=== PATIENT | female | born 1960 | race Caucasian/White ===

== ENCOUNTER 2020-08-10 15:25 | Inpatient (IN) | payer SELFPAY ==
[~2020-08-10] VITALS: Ht 185.4 cm; Wt 111.5 kg
[~2020-08-10 15:25] MED LIST: ALPR0.25 PO; AZIL1TAB3 PO; CEPH125S PO; CITA10TA8 PO; HYDR-2761 PO; METF500T16 PO; MULT-208 PO; SULF-143 PO
[2020-08-10] MEDS ORDERED: IV NORMAL SALINE 1000ML BAG 1,000 ML IV SCH (18:30)
[2020-08-10 18:45] LABS: BASO % 0 % (0-3); EOS # 0.1 x10^3/uL (0.0-0.7); EOS % 1 % (0-3); HEMOGLOBIN 12.2 g/dL (12.0-15.5); LYMPH # 1.4 x10^3/uL (1.0-4.8); LYMPH % 10 % (24-48); MEAN CORPUSCULAR HEMOGLOBIN 31 pg (25-35); MEAN CORPUSCULAR HGB CONC 34 g/dL (31-37); MEAN CORPUSCULAR VOLUME 91 fL (79-100); MONO # 0.8 x10^3/uL (0.0-1.1); MONO % 6 % (0-9); NEUT # 11.8 x10^3/uL (1.8-7.7); NEUT % 83 % (31-73); PLATELET COUNT 296 x10^3/uL (140-400); RED BLOOD COUNT 3.96 x10^6/uL (3.50-5.40); RED CELL DISTRIBUTION WIDTH 14.2 % (11.5-14.5); WHITE BLOOD COUNT 14.1 x10^3/uL (4.0-11.0)
[2020-08-10] MEDS ORDERED: HYDROmorphone 2 MG/ML VIAL IVP ONE (18:45)
[2020-08-10] MEDS ORDERED: PIPERACILLIN/TAZOBACTAM 4.5 GM in IV NORMAL SALINE 100ML 100 ML IV ONE (18:45)
[2020-08-10 18:54] LABS: CALCIUM 8.9 mg/dL (8.5-10.1); CREATININE 2.1 mg/dL (0.6-1.0); GFR 24.1; POTASSIUM 3.9 mmol/L (3.5-5.1); PROTHROMBIN TIME PATIENT 15.3 SEC (11.7-14.0)
[2020-08-10] MEDS ORDERED: VANCOMYCIN 2 GM in IV NORMAL SALINE 500ML BAG 500 ML IV ONE (19:00)
[2020-08-10 19:01] LABS: ALBUMIN 3.7 g/dL (3.4-5.0); TOTAL BILIRUBIN 0.3 mg/dL (0.2-1.0); TOTAL PROTEIN 7.3 g/dL (6.4-8.2)
[2020-08-10] MEDS ORDERED: IV NORMAL SALINE 1000ML BAG 1,000 ML IV ONE ×2 (19:15)
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
[2020-08-10] MEDS ORDERED: ACETAMINOPHEN 325 MG TABLET. PO PRN (20:00)
[2020-08-10] MEDS: MORPHINE SULFATE 4 MG/ML VIAL. IV PRN (22:01)
[2020-08-10 22:20] VITALS: BP 120/41
[2020-08-11] MEDS: MORPHINE SULFATE 4 MG/ML VIAL. IV PRN ×7 (01:08→22:16)
[2020-08-11 03:09] VITALS: BP 108/60
[2020-08-11 07:00] VITALS: BP 103/61
[2020-08-11] MEDS ORDERED: CARI350T14 PO (07:47)
[2020-08-11] MEDS ORDERED: VITA1TAB31 PO (07:47)
[2020-08-11] MEDS ORDERED: LOSA100T14 PO (07:47)
[2020-08-11] MEDS ORDERED: PYRI50CA PO (07:47)
[2020-08-11] MEDS ORDERED: CITA40TA12 PO (07:47)
[2020-08-11] MEDS ORDERED: METF10007 PO (07:47)
[2020-08-11 10:02] LABS: ALBUMIN 2.8 g/dL (3.4-5.0); ALBUMIN/GLOBULIN RATIO 0.9 (1.0-1.7); CALCIUM 8.4 mg/dL (8.5-10.1); CREATININE 1.7 mg/dL (0.6-1.0); GFR 30.8; POTASSIUM 3.8 mmol/L (3.5-5.1); TOTAL BILIRUBIN 0.3 mg/dL (0.2-1.0); TOTAL PROTEIN 5.9 g/dL (6.4-8.2)
[2020-08-11 10:49] VITALS: BP 106/55
--- NOTE | 2020-08-11 11:37 | PDOC2 ---
CONSULT Date of Service Date of Service DATE: 08/11/20 TIME: 11:28 Reason for Consult Reason for Consult: PAD left fourth toe gangrene Referring Physician Referring Physician: Dr. Gonzalez Identification/Chief Complaint Chief Complaint Left fourth toe discoloration Source Source: Chart review, Patient History of Present Illness Reason for Visit: Patient is a 59-year-old woman with a history of diabetes mellitus type 2 and tobacco abuse Daily cigarette smoker who presented to the emergency department with about 2 days of left fourth toe discoloration. She apparently called her primary care office and was sent to the emergency department. She denies any fever, chills, rigors. She states that she noticed about 2 days ago that her left fourth toe is becoming discolored became worse and she presented to the emergency department. She denies any history of claudication symptoms that she has no ischemic rest pain. She has no history of previous lower extremity arterial intervention. She states that she has been trying to cut back on cigarettes but has been smoking daily for many years. She is a type II diabetic. Past Medical History Cardiovascular: HTN Endocrine: Diabetes Social History 1 pack per day ALCOHOL: social Drugs: None Current Problem List Problem List Problems Medical Problems: (1) PAMELA (acute kidney injury) Status: Acute (2) Blue toe syndrome of left lower extremity Status: Acute (3) Cellulitis of foot, left Status: Acute (4) PAD (peripheral artery disease) Status: Acute Current Medications Current Medications Current Medications Sodium Chloride 1,000 ml @ 100 mls/hr Q10H IV Last administered on 08/10/20at 19:06; Start 08/10/20 at 18:30; Stop 08/11/20 at 04:29; Status DC Piperacillin Sod/ Tazobactam Sod 4.5 gm/Sodium Chloride 100 ml @ 200 mls/hr 1X ONCE IV Last administered on 08/10/20at 23:04; Start 08/10/20 at 18:45; Stop 08/10/20 at 19:14; Status DC Vancomycin HCl 2 gm/Sodium Chloride 500 ml @ 250 mls/hr 1X ONCE IV Last administered on 08/10/20at 19:07; Start 08/10/20 at 19:00; Stop 08/10/20 at 20:59; Status DC Hydromorphone HCl (Dilaudid) 0.5 mg 1X ONCE IVP Last administered on 08/10/20at 19:04; Start 08/10/20 at 18:45; Stop 08/10/20 at 18:46; Status DC Sodium Chloride 1,000 ml @ 1,000 mls/hr 1X ONCE IV ; Start 08/10/20 at 19:15; Stop 08/10/20 at 20:14; Status DC Sodium Chloride 1,000 ml @ 1,000 mls/hr 1X ONCE IV ; Start 08/10/20 at 19:15; Stop 08/10/20 at 20:14; Status DC Acetaminophen (Tylenol) 650 mg PRN Q4HRS PRN PO FEVER > 100.3'F; Start 08/10/20 at 20:00; Stop 08/11/20 at 19:59 Morphine Sulfate (Morphine Sulfate) 4 mg PRN Q2HR PRN IV SEVERE PAIN 7-10 Last administered on 08/11/20at 08:01; Start 08/10/20 at 22:00 Morphine Sulfate (Morphine Sulfate) 2 mg PRN Q2HR PRN IVP MODERATE PAIN 4-6; Start 08/10/20 at 22:00 Active Scripts Active Reported Vitamin B-6 (Pyridoxine Hcl) 50 Mg Capsule 1 Cap PO DAILY 30 Days D3 + K2 Dots 1,000 Units Tab (Vitamin D3/Vitamin K2) 1 Each Tab.rapdis 1 Tab PO DAILY 30 Days Losartan Potassium 100 Mg Tablet 1 Tab PO DAILY Carisoprodol 350 Mg Tablet 1 Tab PO TID PRN Celexa (Citalopram Hydrobromide) 40 Mg Tablet 1 Tab PO DAILY Metformin Hcl 1,000 Mg Tablet 1,000 Mg PO [id number] Multi-Day Vitamins (Multivitamin) 1 Each Tablet 1 Each PO Allergies Allergies: Coded Allergies: No Known Drug Allergies (Unverified , 07/08/15) Physical Exam General: Alert, Oriented X3, No acute distress HEENT: Atraumatic, PERRLA Lungs: Clear to auscultation Heart: Regular rate, Normal S1, Normal S2, No murmurs Abdomen: Normal bowel sounds, Soft, No masses Extremities: No clubbing, Other (Left fourth toe purplish discoloration bilateral femoral pulses are 2+ bilateral ankle pulses are absent but signals are present) Skin: No rashes Neuro: Normal gait, Normal speech, Normal tone, Sensation intact, Other (She is easily able to wiggle the toes dorsiflex and plantarflex the feet and reports equal and intact sensation to both feet) Psych/Mental Status: Mental status NL MUSCULOSKELETAL: No joint tenderness Vitals VITALS Vital Signs Date Time Temp Pulse Resp B/P (MAP) Pulse Ox O2 Delivery O2 Flow Rate FiO2 08/11/20 10:49 97.5 63 18 106/55 (72) 95 Room Air 97.5 Labs Labs Laboratory Tests Test 08/10/20 18:37 08/10/20 23:06 08/11/20 07:16 08/11/20 09:11 White Blood Count 14.1 x10^3/uL (4.0-11.0) Red Blood Count 3.96 x10^6/uL (3.50-5.40) Hemoglobin 12.2 g/dL (12.0-15.5) Hematocrit 36.0 % (36.0-47.0) Mean Corpuscular Volume 91 fL (79-100) Mean Corpuscular Hemoglobin 31 pg (25-35) Mean Corpuscular Hemoglobin Concent 34 g/dL (31-37) Red Cell Distribution Width 14.2 % (11.5-14.5) Platelet Count 296 x10^3/uL (140-400) Neutrophils (%) (Auto) 83 % (31-73) Lymphocytes (%) (Auto) 10 % (24-48) Monocytes (%) (Auto) 6 % (0-9) Eosinophils (%) (Auto) 1 % (0-3) Basophils (%) (Auto) 0 % (0-3) Neutrophils # (Auto) 11.8 x10^3/uL (1.8-7.7) Lymphocytes # (Auto) 1.4 x10^3/uL (1.0-4.8) Monocytes # (Auto) 0.8 x10^3/uL (0.0-1.1) Eosinophils # (Auto) 0.1 x10^3/uL (0.0-0.7) Basophils # (Auto) 0.0 x10^3/uL (0.0-0.2) Prothrombin Time 15.3 SEC (11.7-14.0) Prothromb Time International Ratio 1.3 (0.8-1.1) Activated Partial Thromboplast Time 33 SEC (24-38) Sodium Level 133 mmol/L (136-145) 136 mmol/L (136-145) Potassium Level 3.9 mmol/L (3.5-5.1) 3.8 mmol/L (3.5-5.1) Chloride Level 98 mmol/L (98-107) 104 mmol/L (98-107) Carbon Dioxide Level 20 mmol/L (21-32) 20 mmol/L (21-32) Anion Gap 15 (6-14) 12 (6-14) Blood Urea Nitrogen 63 mg/dL (7-20) 61 mg/dL (7-20) Creatinine 2.1 mg/dL (0.6-1.0) 1.7 mg/dL (0.6-1.0) Estimated GFR (Cockcroft-Gault) 24.1 30.8 BUN/Creatinine Ratio 30 (6-20) 36 (6-20) Glucose Level 204 mg/dL (70-99) 156 mg/dL (70-99) Calcium Level 8.9 mg/dL (8.5-10.1) 8.4 mg/dL (8.5-10.1) Total Bilirubin 0.3 mg/dL (0.2-1.0) 0.3 mg/dL (0.2-1.0) Aspartate Amino Transf (AST/SGOT) 10 U/L (15-37) 9 U/L (15-37) Alanine Aminotransferase (ALT/SGPT) 19 U/L (14-59) 15 U/L (14-59) Alkaline Phosphatase 80 U/L (46-116) 67 U/L (46-116) Total Protein 7.3 g/dL (6.4-8.2) 5.9 g/dL (6.4-8.2) Albumin 3.7 g/dL (3.4-5.0) 2.8 g/dL (3.4-5.0) Albumin/Globulin Ratio 1.0 (1.0-1.7) 0.9 (1.0-1.7) Glucose (Fingerstick) 283 mg/dL (70-99) 173 mg/dL (70-99) Test 08/11/20 11:10 Glucose (Fingerstick) 146 mg/dL (70-99) Laboratory Tests Test 08/10/20 18:37 08/10/20 23:06 08/11/20 07:16 08/11/20 09:11 White Blood Count 14.1 x10^3/uL (4.0-11.0) Red Blood Count 3.96 x10^6/uL (3.50-5.40) Hemoglobin 12.2 g/dL (12.0-15.5) Hematocrit 36.0 % (36.0-47.0) Mean Corpuscular Volume 91 fL (79-100) Mean Corpuscular Hemoglobin 31 pg (25-35) Mean Corpuscular Hemoglobin Concent 34 g/dL (31-37) Red Cell Distribution Width 14.2 % (11.5-14.5) Platelet Count 296 x10^3/uL (140-400) Neutrophils (%) (Auto) 83 % (31-73) Lymphocytes (%) (Auto) 10 % (24-48) Monocytes (%) (Auto) 6 % (0-9) Eosinophils (%) (Auto) 1 % (0-3) Basophils (%) (Auto) 0 % (0-3) Neutrophils # (Auto) 11.8 x10^3/uL (1.8-7.7) Lymphocytes # (Auto) 1.4 x10^3/uL (1.0-4.8) Monocytes # (Auto) 0.8 x10^3/uL (0.0-1.1) Eosinophils # (Auto) 0.1 x10^3/uL (0.0-0.7) Basophils # (Auto) 0.0 x10^3/uL (0.0-0.2) Prothrombin Time 15.3 SEC (11.7-14.0) Prothromb Time International Ratio 1.3 (0.8-1.1) Activated Partial Thromboplast Time 33 SEC (24-38) Sodium Level 133 mmol/L (136-145) 136 mmol/L (136-145) Potassium Level 3.9 mmol/L (3.5-5.1) 3.8 mmol/L (3.5-5.1) Chloride Level 98 mmol/L (98-107) 104 mmol/L (98-107) Carbon Dioxide Level 20 mmol/L (21-32) 20 mmol/L (21-32) Anion Gap 15 (6-14) 12 (6-14) Blood Urea Nitrogen 63 mg/dL (7-20) 61 mg/dL (7-20) Creatinine 2.1 mg/dL (0.6-1.0) 1.7 mg/dL (0.6-1.0) Estimated GFR (Cockcroft-Gault) 24.1 30.8 BUN/Creatinine Ratio 30 (6-20) 36 (6-20) Glucose Level 204 mg/dL (70-99) 156 mg/dL (70-99) Calcium Level 8.9 mg/dL (8.5-10.1) 8.4 mg/dL (8.5-10.1) Total Bilirubin 0.3 mg/dL (0.2-1.0) 0.3 mg/dL (0.2-1.0) Aspartate Amino Transf (AST/SGOT) 10 U/L (15-37) 9 U/L (15-37) Alanine Aminotransferase (ALT/SGPT) 19 U/L (14-59) 15 U/L (14-59) Alkaline Phosphatase 80 U/L (46-116) 67 U/L (46-116) Total Protein 7.3 g/dL (6.4-8.2) 5.9 g/dL (6.4-8.2) Albumin 3.7 g/dL (3.4-5.0) 2.8 g/dL (3.4-5.0) Albumin/Globulin Ratio 1.0 (1.0-1.7) 0.9 (1.0-1.7) Glucose (Fingerstick) 283 mg/dL (70-99) 173 mg/dL (70-99) Test 08/11/20 11:10 Glucose (Fingerstick) 146 mg/dL (70-99) Assessment/Plan Assessment/Plan 59-year-old female with multiple risk factors for PAD including diabetes mellitus type 2 tobacco abuse who has left fourth toe discoloration likely early gangrene without evidence of systemic infection. She has excellent femoral pulses, ankle pulses absent but signals present consistent with popliteal tibial occlusive disease which would be consistent with her history of diabetes and smoking. She was admitted with elevated creatinine 2.1 improved to 1.7 today with IV fluid hydration. Continue with aggressive IV fluid hydration hopefully we can improve her creatinine to normal over the next day or 2. I ordered a arterial duplex of both legs. She will likely need diagnostic angiography and intervention versus bypass for limb salvage with subsequent to left fourth toe amputation. I discussed with her that normal flow is necessary for wound healing and that we cannot simply amputate the toe without good blood flow to the foot otherwise she will have a nonhealing surgical wound and result in limb loss/major amputation. Given her elevated creatinine would like to see this improve prior to timmy ography. She has a normal motor and sensation her only symptoms are the left fourth toe so this is most consistent with the presentation of chronic PAD and not any acute limb threatening ischemia. While her toe does appear to have early gangrene she does not have any signs of sepsis or systemic infection and the rest of the foot looks good so she does not need urgent amputation for source control. Agree with continuing antibiotics, aggressive IV fluid hydration, recheck labs in the morning, plan for angiography and likely intervention this week followed by toe amputation versus bypass in 2 amputation depending on angiographic find RUIZ Andrade MD Aug 11, 2020 11:37
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
[2020-08-11] MEDS: VANCOMYCIN PER PHARMACY MC PRN ×3 (14:16→14:23)
--- NOTE | 2020-08-11 14:20 | NUR ---
Pharmacy Vancomycin Dosing Note S:Consulted to monitor and dose vancomycin started 08/11/20. O:ELIOT BANEGAS is a 59 year old F with GANGRENOUS TOES . Height: 6 feet, 1 inches Weight: 111.5 kg [place] Body Weight: 75.40 Adjusted Body Weight: 89.84 Dosing Weight: Other Antibiotics: ZOSYN LABS: Last BUN: 61 Last Creatinine: 1.7 Creatinine Clearance: 50 mL/min Last WBC: 14.1 Last Procalcitonin: Tmax (past 24 hours): Microbiology: I/O: 360/- Drug Levels: Last level: on at Last dose given at Vancomycin Dosing: Loading Dose: 2000 mg x1 Dosing Weight: Target Trough: 15-20 A: Based on: HT, WT AND RENAL FUNCTION P: 1. Begin Vancomycin 1750 mg IV q 24 hours after 2000mg loading dose. 2. Follow up Trough level on 08/12/20 at 1830 3. Pharmacy will continue to monitor, follow and adjust therapy as needed. ILDEFONSO CAI, [facility], 08/11/20 [id number]
[2020-08-11] MEDS: PYRIDOXINE 50 MG TABLET. PO SCH (14:30)
[2020-08-11] MEDS: LOSARTAN POTASSIUM 50 MG TABLET. PO SCH (14:30)
[2020-08-11] MEDS: CHOLECALCIFEROL (VITAMIN D3) 1,000 UNIT TABLET PO SCH (14:30)
[2020-08-11] MEDS: PIPERACILLIN/TAZOBACTAM 3.375 GM in IV NORMAL SALINE 50ML 50 ML IV SCH ×3 (14:30→23:56)
[2020-08-11] MEDS: CITALOPRAM 20 MG TABLET. PO SCH (14:31)
[2020-08-11 14:37] VITALS: BP 105/42
[2020-08-11] MEDS: VANCOMYCIN 1.75 GM in IV NORMAL SALINE 500ML BAG 500 ML IV SCH ×2 (18:50→19:00)
[2020-08-11 19:12] VITALS: BP 109/57
[2020-08-11] MEDS: LACTOBACILLUS RHAMNOSUS GG 1 CAPSULE. PO SCH (21:01)
[2020-08-11 23:11] VITALS: BP 125/57
[2020-08-12] MEDS: MORPHINE SULFATE 4 MG/ML VIAL. IV PRN ×9 (00:58→21:34)
[2020-08-12 03:06] VITALS: BP 114/45
--- NOTE | 2020-08-12 05:17 | RAD ---
Bilateral lower extremity arterial Doppler dated 08/11/2020. No comparison available. CLINICAL INDICATION: Peripheral artery disease. Pain. FINDINGS: Grayscale, color-flow and spectral waveform analysis performed. There is mild diffuse atherosclerotic plaquing. Triphasic flow of the right common femoral artery and proximal superficial femoral artery with monophasic flow in the mid and distal superficial femoral artery on the right. There is also mon ophasic flow throughout the calf arteries on the right. Low velocity flow noted posterior tibial raeann ry. The peroneal artery is not visualized. There is mild elevated velocity the profundus femoris arlyn uring 156 cm/S. On the left, there is monophasic flow throughout areas of relative low velocity in the posterior tibi al artery peroneal artery and dorsalis pedis. There is mild elevation of velocity of the profundus fe rubi measuring 157 cm/S. IMPRESSION: 1. Monophasic flow bilaterally which could be related to diffuse disease or inflow disease. If indica avelina, CTA would better evaluate. 2. Velocity elevation of the bilateral profundus femoris suggesting a moderate grade narrowing. 3. There is also relative velocity elevation of the right anterior tibial artery suggesting moderate to mild to moderate narrowing. The right peroneal artery is not visualized and may be chronically occ luded Electronically signed by: Leon Melendez MD (08/12/2020 5:15 AM) [facility]
[2020-08-12] MEDS: PIPERACILLIN/TAZOBACTAM 3.375 GM in IV NORMAL SALINE 50ML 50 ML IV SCH ×4 (05:52→23:58)
--- NOTE | 2020-08-12 06:30 | NUR ---
Vanco that was due 08/11/2020 was not administered due to stating it was discontinued and when refreshed, it was removed off of the MAR. Going through OCT this AM, noticed that it was on and stated that I administered, however I didn't due to reason above. Will ensure next scheduled is administered. MPRN
[2020-08-12 07:04] VITALS: BP 134/52
[2020-08-12] MEDS: CHOLECALCIFEROL (VITAMIN D3) 1,000 UNIT TABLET PO SCH (08:00)
[2020-08-12] MEDS: LACTOBACILLUS RHAMNOSUS GG 1 CAPSULE. PO SCH ×2 (08:00→21:34)
[2020-08-12] MEDS: PYRIDOXINE 50 MG TABLET. PO SCH (08:00)
[2020-08-12] MEDS: CITALOPRAM 20 MG TABLET. PO SCH (08:00)
[2020-08-12] MEDS: LOSARTAN POTASSIUM 50 MG TABLET. PO SCH (08:01)
[2020-08-12 10:34] VITALS: BP 116/51
[2020-08-12] MEDS ORDERED: IV 1/2 NORMAL SALINE 1,000 ML IV ONE (11:00)
--- NOTE | 2020-08-12 13:17 | PN ---
DATE: 08/12/2020 LOCATION: She is in room 428. SUBJECTIVE: This 59-year-old white female remains hospitalized for gangrene of her left fourth toe and no palpable pulses in her feet, although foot remains warm. She also has what appears to be some cellulitis of the distal forefoot area in addition. She denies any significant complaints this morning. OBJECTIVE: VITAL SIGNS: Stable. She is afebrile. Sugars are somewhat elevated and sliding scale ordered. Insulin was ordered yesterday, but I do not see where it is happening yet. CHEST: Clear. HEART: Regular. ABDOMEN: Benign. EXTREMITIES: Foot appears similar to yesterday with again still no palpable pulses. IMPRESSION: 1. Left fourth toe gangrene with peripheral arterial disease. 2. Acute kidney injury. 3. Diabetes. 4. Cellulitis, left foot. PLAN: Ongoing IV antibiotics. We will plan on continuing hydration, rechecking renal function in the morning and hopefully able to do an arteriogram of the leg. Her metformin is on hold and sliding scale insulin has been ordered to cover sugars in the meantime. OLGA SERRA MD DR: DEIRDRE/ct JOB#: [id number] / [id number]
[2020-08-12 14:29] VITALS: BP 111/53
--- NOTE | 2020-08-12 16:18 | PDOC ---
PROGRESS NOTES Date of Service DATE: 08/12/20 TIME: 16:16 Subjective Subjective No new c/o arterial duplex shows evidence of significant tibial occlusive disease on the left she will need angiogram / revascularization prior to left 4th toe amputation No Cr was checked this morning but if close to normal will try to do angiogram tomorrow If not potentially later in the week Objective Objective Vital Signs Date Time Temp Pulse Resp B/P (MAP) Pulse Ox O2 Delivery O2 Flow Rate FiO2 08/12/20 15:24 16 Room Air 08/12/20 14:29 97.9 66 111/53 (72) 93 97.9 Intake and Output 08/12/20 07:00 Intake Total 1400 ml Output Total 1700 ml Balance -300 ml Intake Oral 1400 ml Output Urine Total 1700 ml # Voids 1 Assessment Assessment Problems Medical Problems: (1) PAMELA (acute kidney injury) Status: Acute (2) Blue toe syndrome of left lower extremity Status: Acute (3) Cellulitis of foot, left Status: Acute (4) PAD (peripheral artery disease) Status: Acute Comment Review of Relevant I have reviewed the following items scott (where applicable) has been applied. Labs Laboratory Tests Test 08/10/20 18:37 08/10/20 23:06 08/11/20 07:16 08/11/20 09:11 White Blood Count 14.1 x10^3/uL (4.0-11.0) Red Blood Count 3.96 x10^6/uL (3.50-5.40) Hemoglobin 12.2 g/dL (12.0-15.5) Hematocrit 36.0 % (36.0-47.0) Mean Corpuscular Volume 91 fL (79-100) Mean Corpuscular Hemoglobin 31 pg (25-35) Mean Corpuscular Hemoglobin Concent 34 g/dL (31-37) Red Cell Distribution Width 14.2 % (11.5-14.5) Platelet Count 296 x10^3/uL (140-400) Neutrophils (%) (Auto) 83 % (31-73) Lymphocytes (%) (Auto) 10 % (24-48) Monocytes (%) (Auto) 6 % (0-9) Eosinophils (%) (Auto) 1 % (0-3) Basophils (%) (Auto) 0 % (0-3) Neutrophils # (Auto) 11.8 x10^3/uL (1.8-7.7) Lymphocytes # (Auto) 1.4 x10^3/uL (1.0-4.8) Monocytes # (Auto) 0.8 x10^3/uL (0.0-1.1) Eosinophils # (Auto) 0.1 x10^3/uL (0.0-0.7) Basophils # (Auto) 0.0 x10^3/uL (0.0-0.2) Prothrombin Time 15.3 SEC (11.7-14.0) Prothromb Time International Ratio 1.3 (0.8-1.1) Activated Partial Thromboplast Time 33 SEC (24-38) Sodium Level 133 mmol/L (136-145) 136 mmol/L (136-145) Potassium Level 3.9 mmol/L (3.5-5.1) 3.8 mmol/L (3.5-5.1) Chloride Level 98 mmol/L (98-107) 104 mmol/L (98-107) Carbon Dioxide Level 20 mmol/L (21-32) 20 mmol/L (21-32) Anion Gap 15 (6-14) 12 (6-14) Blood Urea Nitrogen 63 mg/dL (7-20) 61 mg/dL (7-20) Creatinine 2.1 mg/dL (0.6-1.0) 1.7 mg/dL (0.6-1.0) Estimated GFR (Cockcroft-Gault) 24.1 30.8 BUN/Creatinine Ratio 30 (6-20) 36 (6-20) Glucose Level 204 mg/dL (70-99) 156 mg/dL (70-99) Calcium Level 8.9 mg/dL (8.5-10.1) 8.4 mg/dL (8.5-10.1) Total Bilirubin 0.3 mg/dL (0.2-1.0) 0.3 mg/dL (0.2-1.0) Aspartate Amino Transf (AST/SGOT) 10 U/L (15-37) 9 U/L (15-37) Alanine Aminotransferase (ALT/SGPT) 19 U/L (14-59) 15 U/L (14-59) Alkaline Phosphatase 80 U/L (46-116) 67 U/L (46-116) Total Protein 7.3 g/dL (6.4-8.2) 5.9 g/dL (6.4-8.2) Albumin 3.7 g/dL (3.4-5.0) 2.8 g/dL (3.4-5.0) Albumin/Globulin Ratio 1.0 (1.0-1.7) 0.9 (1.0-1.7) Glucose (Fingerstick) 283 mg/dL (70-99) 173 mg/dL (70-99) Test 08/11/20 11:10 08/11/20 16:06 08/11/20 20:03 08/12/20 07:13 Glucose (Fingerstick) 146 mg/dL (70-99) 240 mg/dL (70-99) 245 mg/dL (70-99) 180 mg/dL (70-99) Test 08/12/20 11:09 Glucose (Fingerstick) 237 mg/dL (70-99) Laboratory Tests Test 08/11/20 20:03 08/12/20 07:13 08/12/20 11:09 Glucose (Fingerstick) 245 mg/dL (70-99) 180 mg/dL (70-99) 237 mg/dL (70-99) Medications Current Medications Sodium Chloride 1,000 ml @ 100 mls/hr Q10H IV Last administered on 08/10/20at 19:06; Start 08/10/20 at 18:30; Stop 08/11/20 at 04:29; Status DC Piperacillin Sod/ Tazobactam Sod 4.5 gm/Sodium Chloride 100 ml @ 200 mls/hr 1X ONCE IV Last administered on 08/10/20at 23:04; Start 08/10/20 at 18:45; Stop 08/10/20 at 19:14; Status DC Vancomycin HCl 2 gm/Sodium Chloride 500 ml @ 250 mls/hr 1X ONCE IV Last administered on 08/10/20at 19:07; Start 08/10/20 at 19:00; Stop 08/10/20 at 20:59; Status DC Hydromorphone HCl (Dilaudid) 0.5 mg 1X ONCE IVP Last administered on 08/10/20at 19:04; Start 08/10/20 at 18:45; Stop 08/10/20 at 18:46; Status DC Sodium Chloride 1,000 ml @ 1,000 mls/hr 1X ONCE IV ; Start 08/10/20 at 19:15; Stop 08/10/20 at 20:14; Status DC Sodium Chloride 1,000 ml @ 1,000 mls/hr 1X ONCE IV ; Start 08/10/20 at 19:15; Stop 08/10/20 at 20:14; Status DC Acetaminophen (Tylenol) 650 mg PRN Q4HRS PRN PO FEVER > 100.3'F; Start 08/10/20 at 20:00; Stop 08/11/20 at 19:59; Status DC Morphine Sulfate (Morphine Sulfate) 4 mg PRN Q2HR PRN IV SEVERE PAIN 7-10 Last administered on 08/12/20at 14:49; Start 08/10/20 at 22:00 Morphine Sulfate (Morphine Sulfate) 2 mg PRN Q2HR PRN IVP MODERATE PAIN 4-6; Start 08/10/20 at 22:00 Citalopram Hydrobromide (CeleXA) 40 mg DAILY PO Last administered on 08/12/20at 08:00; Start 08/11/20 at 14:00 Losartan Potassium (Cozaar) 100 mg DAILY PO Last administered on 08/12/20at 08:01; Start 08/11/20 at 14:00 Pyridoxine HCl (Vitamin B-6) 50 mg DAILY PO Last administered on 08/12/20at 08:00; Start 08/11/20 at 14:00 Vitamin D (Vitamin D3) 1,000 unit DAILY PO Last administered on 08/12/20at 08:00; Start 08/11/20 at 14:00 Piperacillin Sod/ Tazobactam Sod 3.375 gm/Sodium Chloride 50 ml @ 100 mls/hr Q6HRS IV Last administered on 08/12/20at 12:00; Start 08/11/20 at 14:00 Vancomycin HCl (Vanco Per Pharmacy) 1 each PRN DAILY PRN MC SEE COMMENTS Last administered on 08/11/20at 14:23; Start 08/11/20 at 13:00 Vancomycin HCl 1.75 gm/Sodium Chloride 500 ml @ 250 mls/hr Q24H IV ; Start 08/11/20 at 19:00 Vancomycin HCl (Vancomycin Trough Level) 1 each 1X ONCE MC ; Start 08/12/20 at 18:30; Stop 08/12/20 at 18:31 Lactobacillus Rhamnosus (Culturelle) 1 cap BID PO Last administered on 08/12/20at 08:00; Start 08/11/20 at 21:00 Sodium Chloride 1,000 ml @ 125 mls/hr 1X ONCE IV Last administered on 08/12/20at 10:41; Start 08/12/20 at 11:00; Stop 08/12/20 at 18:59 Active Scripts Active Reported Vitamin B-6 (Pyridoxine Hcl) 50 Mg Capsule 1 Cap PO DAILY 30 Days D3 + K2 Dots 1,000 Units Tab (Vitamin D3/Vitamin K2) 1 Each Tab.rapdis 1 Tab PO DAILY 30 Days Losartan Potassium 100 Mg Tablet 1 Tab PO DAILY Carisoprodol 350 Mg Tablet 1 Tab PO TID PRN Celexa (Citalopram Hydrobromide) 40 Mg Tablet 1 Tab PO DAILY Metformin Hcl 1,000 Mg Tablet 1,000 Mg PO [id number] Multi-Day Vitamins (Multivitamin) 1 Each Tablet 1 Each PO Vitals/I & O Vital Sign - Last 24 Hours 08/11/20 08/11/20 08/11/20 08/11/20 16:20 19:12 19:30 19:40 Temp 97.8 97.8 Pulse 69 Resp 16 16 B/P (MAP) 109/57 (74) Pulse Ox 93 O2 Delivery Room Air Room Air Room Air Room Air 08/11/20 08/11/20 08/11/20 08/11/20 20:10 22:16 22:55 23:11 Temp 98.6 98.6 Pulse 72 Resp 18 B/P (MAP) 125/57 (79) Pulse Ox 90 O2 Delivery Room Air Room Air Room Air Room Air 08/12/20 08/12/20 08/12/20 08/12/20 00:58 03:06 05:56 06:35 Temp 98.2 98.2 Pulse 65 Resp 23 B/P (MAP) 114/45 (68) Pulse Ox 90 O2 Delivery Room Air Room Air Room Air Room Air 08/12/20 08/12/20 08/12/20 08/12/20 07:04 08:00 08:01 08:07 Temp 98.1 98.1 Pulse 64 64 Resp 18 16 B/P (MAP) 134/52 (79) 134/52 Pulse Ox 92 O2 Delivery Room Air Room Air Room Air 08/12/20 08/12/20 08/12/20 08/12/20 08:58 10:15 10:34 10:45 Temp 98.0 98.0 Pulse 60 Resp 16 16 18 16 B/P (MAP) 116/51 (72) Pulse Ox 93 O2 Delivery Room Air Room Air Room Air Room Air 08/12/20 08/12/20 08/12/20 08/12/20 12:46 13:57 14:29 14:49 Temp 97.9 97.9 Pulse 66 Resp 16 18 16 B/P (MAP) 111/53 (72) Pulse Ox 93 O2 Delivery Room Air Room Air Room Air Room Air 08/12/20 15:24 Resp 16 O2 Delivery Room Air Intake and Output 08/11/20 08/11/20 08/12/20 15:00 23:00 07:00 Intake Total 700 ml 700 ml Output Total 1000 ml 700 ml Balance -300 ml 0 ml Justifications for Admission Other Justification MASON,RUIZ Resendiz MD Aug 12, 2020 16:18
[2020-08-12] MEDS: VANCOMYCIN 1.75 GM in IV NORMAL SALINE 500ML BAG 500 ML IV SCH (19:00)
[2020-08-12 19:28] LABS: VANC TR 7.1 mcg/mL (10.0-20.0)
[2020-08-12] MEDS: VANCOMYCIN PER PHARMACY MC PRN ×2 (19:33→20:04)
[2020-08-12 19:37] VITALS: BP 93/51
--- NOTE | 2020-08-12 20:10 | NUR ---
Pharmacy Vancomycin Dosing Note S: Consulted to monitor and dose vancomycin started 08/11/20. O: ELIOT BANEAGS is a 59 year old F with , GANGRENOUS TOES . Other Antibiotics: ZOSYN LABS: Last BUN: 61 Last Creatinine: 1.7 Creatinine Clearance: 50 mL/min Last WBC: 14.1 Last Procalcitonin: Tmax (past 24 hours): Microbiology: I/O: 360/- Drug Levels: Last Trough level: 7.1 on 08/12/20 at 1845 Last dose given at Vancomycin Dosing: Dosing Weight: Actual Target Trough: 15-20 A: Based on: low trough P: 1. Change Vancomycin 1250 mg IV q12h 2. Follow up Trough level on 08/14/20 at 0730 3. Pharmacy will continue to monitor, follow and adjust therapy as needed. ILDEFONSO CAI, [facility], 08/12/202009
[2020-08-12] MEDS: VANCOMYCIN 1.25 GM in IV NORMAL SALINE 250ML 250 ML IV SCH (20:11)
[2020-08-12 23:02] VITALS: BP 111/46
[2020-08-13] MEDS: MORPHINE SULFATE 4 MG/ML VIAL. IV PRN ×5 (01:12→20:30)
[2020-08-13] MEDS: PIPERACILLIN/TAZOBACTAM 3.375 GM in IV NORMAL SALINE 50ML 50 ML IV SCH ×3 (05:41→17:37)
[2020-08-13 06:23] LABS: CALCIUM 8.2 mg/dL (8.5-10.1); CREATININE 1.4 mg/dL (0.6-1.0); GFR 38.5; POTASSIUM 4.3 mmol/L (3.5-5.1)
--- NOTE | 2020-08-13 06:32 | PDOC ---
PROGRESS NOTES Date of Service DATE: 08/13/20 TIME: 06:30 Subjective Subjective Creatinine trending down but still elevated Will hold off on angiogram today Likely ask IR to do angiogram tomorrow Objective Objective Vital Signs Date Time Temp Pulse Resp B/P (MAP) Pulse Ox O2 Delivery O2 Flow Rate FiO2 08/13/20 05:41 Room Air 08/12/20 23:02 97.4 69 18 111/46 (67) 97 97.4 Intake and Output 08/13/20 07:00 Intake Total 240 ml Output Total 850 ml Balance -610 ml Intake Oral 240 ml Output Urine Total 850 ml # Voids 1 Assessment Assessment Problems Medical Problems: (1) PAMELA (acute kidney injury) Status: Acute (2) Blue toe syndrome of left lower extremity Status: Acute (3) Cellulitis of foot, left Status: Acute (4) PAD (peripheral artery disease) Status: Acute Comment Review of Relevant I have reviewed the following items scott (where applicable) has been applied. Labs Laboratory Tests Test 08/11/20 07:16 08/11/20 09:11 08/11/20 11:10 08/11/20 16:06 Glucose (Fingerstick) 173 mg/dL (70-99) 146 mg/dL (70-99) 240 mg/dL (70-99) Sodium Level 136 mmol/L (136-145) Potassium Level 3.8 mmol/L (3.5-5.1) Chloride Level 104 mmol/L (98-107) Carbon Dioxide Level 20 mmol/L (21-32) Anion Gap 12 (6-14) Blood Urea Nitrogen 61 mg/dL (7-20) Creatinine 1.7 mg/dL (0.6-1.0) Estimated GFR (Cockcroft-Gault) 30.8 BUN/Creatinine Ratio 36 (6-20) Glucose Level 156 mg/dL (70-99) Calcium Level 8.4 mg/dL (8.5-10.1) Total Bilirubin 0.3 mg/dL (0.2-1.0) Aspartate Amino Transf (AST/SGOT) 9 U/L (15-37) Alanine Aminotransferase (ALT/SGPT) 15 U/L (14-59) Alkaline Phosphatase 67 U/L (46-116) Total Protein 5.9 g/dL (6.4-8.2) Albumin 2.8 g/dL (3.4-5.0) Albumin/Globulin Ratio 0.9 (1.0-1.7) Test 08/11/20 20:03 08/12/20 07:13 08/12/20 11:09 08/12/20 16:17 Glucose (Fingerstick) 245 mg/dL (70-99) 180 mg/dL (70-99) 237 mg/dL (70-99) 159 mg/dL (70-99) Test 08/12/20 18:45 08/12/20 19:57 08/13/20 05:20 Vancomycin Level Trough 7.1 mcg/mL (10.0-20.0) Vancomycin Last Dose Date 08/11/20 Vancomycin Last Dose Time 1900 Glucose (Fingerstick) 247 mg/dL (70-99) Sodium Level 137 mmol/L (136-145) Potassium Level 4.3 mmol/L (3.5-5.1) Chloride Level 105 mmol/L (98-107) Carbon Dioxide Level 23 mmol/L (21-32) Anion Gap 9 (6-14) Blood Urea Nitrogen 45 mg/dL (7-20) Creatinine 1.4 mg/dL (0.6-1.0) Estimated GFR (Cockcroft-Gault) 38.5 Glucose Level 149 mg/dL (70-99) Calcium Level 8.2 mg/dL (8.5-10.1) Laboratory Tests Test 08/12/20 07:13 08/12/20 11:09 08/12/20 16:17 08/12/20 18:45 Glucose (Fingerstick) 180 mg/dL (70-99) 237 mg/dL (70-99) 159 mg/dL (70-99) Vancomycin Level Trough 7.1 mcg/mL (10.0-20.0) Vancomycin Last Dose Date 08/11/20 Vancomycin Last Dose Time 1900 Test 08/12/20 19:57 08/13/20 05:20 Glucose (Fingerstick) 247 mg/dL (70-99) Sodium Level 137 mmol/L (136-145) Potassium Level 4.3 mmol/L (3.5-5.1) Chloride Level 105 mmol/L (98-107) Carbon Dioxide Level 23 mmol/L (21-32) Anion Gap 9 (6-14) Blood Urea Nitrogen 45 mg/dL (7-20) Creatinine 1.4 mg/dL (0.6-1.0) Estimated GFR (Cockcroft-Gault) 38.5 Glucose Level 149 mg/dL (70-99) Calcium Level 8.2 mg/dL (8.5-10.1) Medications Current Medications Sodium Chloride 1,000 ml @ 100 mls/hr Q10H IV Last administered on 08/10/20at 19:06; Start 08/10/20 at 18:30; Stop 08/11/20 at 04:29; Status DC Piperacillin Sod/ Tazobactam Sod 4.5 gm/Sodium Chloride 100 ml @ 200 mls/hr 1X ONCE IV Last administered on 08/10/20at 23:04; Start 08/10/20 at 18:45; Stop 08/10/20 at 19:14; Status DC Vancomycin HCl 2 gm/Sodium Chloride 500 ml @ 250 mls/hr 1X ONCE IV Last administered on 08/10/20at 19:07; Start 08/10/20 at 19:00; Stop 08/10/20 at 20:59; Status DC Hydromorphone HCl (Dilaudid) 0.5 mg 1X ONCE IVP Last administered on 08/10/20at 19:04; Start 08/10/20 at 18:45; Stop 08/10/20 at 18:46; Status DC Sodium Chloride 1,000 ml @ 1,000 mls/hr 1X ONCE IV ; Start 08/10/20 at 19:15; Stop 08/10/20 at 20:14; Status DC Sodium Chloride 1,000 ml @ 1,000 mls/hr 1X ONCE IV ; Start 08/10/20 at 19:15; Stop 08/10/20 at 20:14; Status DC Acetaminophen (Tylenol) 650 mg PRN Q4HRS PRN PO FEVER > 100.3'F; Start 08/10/20 at 20:00; Stop 08/11/20 at 19:59; Status DC Morphine Sulfate (Morphine Sulfate) 4 mg PRN Q2HR PRN IV SEVERE PAIN 7-10 Last administered on 08/13/20at 05:41; Start 08/10/20 at 22:00 Morphine Sulfate (Morphine Sulfate) 2 mg PRN Q2HR PRN IVP MODERATE PAIN 4-6; Start 08/10/20 at 22:00 Citalopram Hydrobromide (CeleXA) 40 mg DAILY PO Last administered on 08/12/20at 08:00; Start 08/11/20 at 14:00 Losartan Potassium (Cozaar) 100 mg DAILY PO Last administered on 08/12/20at 0 8:01; Start 08/11/20 at 14:00 Pyridoxine HCl (Vitamin B-6) 50 mg DAILY PO Last administered on 08/12/20at 08:00; Start 08/11/20 at 14:00 Vitamin D (Vitamin D3) 1,000 unit DAILY PO Last administered on 08/12/20at 08:00; Start 08/11/20 at 14:00 Piperacillin Sod/ Tazobactam Sod 3.375 gm/Sodium Chloride 50 ml @ 100 mls/hr Q6HRS IV Last administered on 08/13/20at 05:41; Start 08/11/20 at 14:00 Vancomycin HCl (Vanco Per Pharmacy) 1 each PRN DAILY PRN MC SEE COMMENTS Last administered on 08/12/20at 20:04; Start 08/11/20 at 13:00 Vancomycin HCl 1.75 gm/Sodium Chloride 500 ml @ 250 mls/hr Q24H IV ; Start 08/11/20 at 19:00 Vancomycin HCl (Vancomycin Trough Level) 1 each 1X ONCE MC Last administered on 08/12/20at 18:30; Start 08/12/20 at 18:30; Stop 08/12/20 at 18:31; Status DC Lactobacillus Rhamnosus (Culturelle) 1 cap BID PO Last administered on 08/12/20at 21:34; Start 08/11/20 at 21:00 Sodium Chloride 1,000 ml @ 125 mls/hr 1X ONCE IV Last administered on 08/12/20at 10:41; Start 08/12/20 at 11:00; Stop 08/12/20 at 18:59; Status DC Vancomycin HCl 1.25 gm/Sodium Chloride 250 ml @ 167 mls/hr Q12H IV Last administered on 08/12/20at 20:11; Start 08/12/20 at 20:00 Vancomycin HCl (Vancomycin Trough Level) 1 each 1X ONCE MC ; Start 08/14/20 at 07:30; Stop 08/14/20 at 07:31 Active Scripts Active Reported Vitamin B-6 (Pyridoxine Hcl) 50 Mg Capsule 1 Cap PO DAILY 30 Days D3 + K2 Dots 1,000 Units Tab (Vitamin D3/Vitamin K2) 1 Each Tab.rapdis 1 Tab PO DAILY 30 Days Losartan Potassium 100 Mg Tablet 1 Tab PO DAILY Carisoprodol 350 Mg Tablet 1 Tab PO TID PRN Celexa (Citalopram Hydrobromide) 40 Mg Tablet 1 Tab PO DAILY Metformin Hcl 1,000 Mg Tablet 1,000 Mg PO [id number] Multi-Day Vitamins (Multivitamin) 1 Each Tablet 1 Each PO Vitals/I & O Vital Sign - Last 24 Hours 08/12/20 08/12/20 08/12/20 08/12/20 06:35 07:04 08:00 08:01 Temp 98.1 98.1 Pulse 64 64 Resp 18 B/P (MAP) 134/52 (79) 134/52 Pulse Ox 92 O2 Delivery Room Air Room Air Room Air 08/12/20 08/12/20 08/12/20 08/12/20 08:07 08:58 10:15 10:34 Temp 98.0 98.0 Pulse 60 Resp 16 16 16 18 B/P (MAP) 116/51 (72) Pulse Ox 93 O2 Delivery Room Air Room Air Room Air Room Air 08/12/20 08/12/20 08/12/20 08/12/20 10:45 12:46 13:57 14:29 Temp 97.9 97.9 Pulse 66 Resp 16 16 16 18 B/P (MAP) 111/53 (72) Pulse Ox 93 O2 Delivery Room Air Room Air Room Air Room Air 08/12/20 08/12/20 08/12/20 08/12/20 14:49 15:24 17:07 17:42 Resp 16 16 16 16 O2 Delivery Room Air Room Air Room Air Room Air 08/12/20 08/12/20 08/12/20 08/12/20 19:27 19:37 19:50 20:11 Temp 98.3 98.3 Pulse 72 Resp 16 B/P (MAP) 93/51 (65) Pulse Ox 93 O2 Delivery Room Air Room Air Room Air Room Air 08/12/20 08/12/20 08/12/20 08/13/20 21:34 22:12 23:02 01:12 Temp 97.4 97.4 Pulse 69 Resp 18 B/P (MAP) 111/46 (67) Pulse Ox 97 O2 Delivery Room Air Room Air Room Air Room Air 08/13/20 08/13/20 03:15 05:41 O2 Delivery Room Air Room Air Intake and Output 08/12/20 08/12/20 08/13/20 15:00 23:00 07:00 Intake Total 240 ml Output Total 850 ml Balance 240 ml -850 ml Justifications for Admission Other Justification MASON,RUIZ Resendiz MD Aug 13, 2020 06:32
[2020-08-13 07:00] VITALS: BP 167/65
[2020-08-13] MEDS: VANCOMYCIN 1.25 GM in IV NORMAL SALINE 250ML 250 ML IV SCH ×2 (08:07→20:34)
[2020-08-13] MEDS: CHOLECALCIFEROL (VITAMIN D3) 1,000 UNIT TABLET PO SCH (08:07)
[2020-08-13] MEDS: PYRIDOXINE 50 MG TABLET. PO SCH (08:08)
[2020-08-13] MEDS: LOSARTAN POTASSIUM 50 MG TABLET. PO SCH (08:08)
[2020-08-13] MEDS: CITALOPRAM 20 MG TABLET. PO SCH (08:08)
[2020-08-13] MEDS: LACTOBACILLUS RHAMNOSUS GG 1 CAPSULE. PO SCH ×2 (08:10→20:33)
[2020-08-13] MEDS ORDERED: DEXTROSE 50% 25 GM / 50ML DISP.SYRIN. IV PRN (08:15)
[2020-08-13] MEDS: oxyCODONE/APAP 5/325 1 TAB TABLET PO PRN ×4 (08:23→22:03)
[2020-08-13] MEDS: INSULIN LISPRO 300 UNITS/3 ML VIAL. SQ SCH ×3 (08:30→16:49)
--- NOTE | 2020-08-13 09:34 | NUR ---
SW following. Discussed with RN, pt from home with mother, room air, ada diet, IV abx. SW consult for concerns about insurance and cost - Med Assist following for self pay status - SW will follow up with Med Assist prior to seeing pt. Pt scheduled for an angiogram tomorrow (08/14/2020). SW will continue to follow.
--- NOTE | 2020-08-13 10:34 | PN ---
DATE: 08/13/2020 LOCATION: She is in room 428. SUBJECTIVE: This 59-year-old white female remains hospitalized for gangrene of her left fourth toe and no palpable pulses on her feet, although feet remain warm. She also has some cellulitis on the dorsum of the foot in addition, although this could be ischemic changes in addition. OBJECTIVE: VITAL SIGNS: Stable. She is afebrile. Sugars somewhat elevated and I discussed with nursing again this morning to institute a sliding scale that was ordered a couple of days ago. CHEST: Clear. HEART: Regular. ABDOMEN: Benign. EXTREMITIES: Foot appears stable. LABORATORY DATA: Creatinine is down to 1.4 this morning and Vascular Surgery wants to hold off another day on the arteriogram with further hydration. She has been off the metformin now for a couple of days. IMPRESSION: 1. Left fourth toe gangrene with peripheral arterial disease. 2. Acute kidney injury, improving. 3. Diabetes with elevated sugars and will need sliding scale. 4. Cellulitis of the left foot. PLAN: Ongoing IV antibiotics, continued hydration, likely arteriogram tomorrow with further intervention planned. OLGA SERRA MD DR: DEIRDRE/ct JOB#: [id number] / [id number]
[2020-08-13 11:00] VITALS: BP 115/58
--- NOTE | 2020-08-13 13:55 | RAD ---
US VENOUS MAPPING BILAT 08/13/2020 8:04 AM INDICATION: Conduit for bypass COMPARISON: None available. TECHNIQUE: Sonographic evaluation the bilateral lower extremity venous system was performed utilizin g grayscale imaging. Findings: Right: Greater saphenous vein: Saphenofemoral Junction: 4.4 mm Proximal thigh: 3.0 mm Mid thigh: 2.6 mm Distal thigh: 2.9 mm Popliteal: 3.3 mm Proximal calf: 3.3 mm Mid calf: 2.9 mm Ankle: 3.1 mm Lesser saphenous vein: Proximal calf: 2.1 mm Mid calf: 1.9 mm Distal calf: 2.1 mm Left: Greater saphenous vein: Saphenofemoral Junction: 2.7 mm Proximal thigh: 3.3 mm Mid thigh: 2.6 mm Distal thigh: 2.6 mm Popliteal: 2.8 mm Proximal calf: 2.5 mm Mid calf: 2.1 mm Ankle: 2.7 mm Lesser saphenous vein: Proximal calf: 2.3 mm Mid calf: 2.4 mm Distal calf: 2.8 mm IMPRESSION: Greater and lesser saphenous vein measures are provided above. Electronically signed by: Sheila Copeland MD (08/13/2020 1:52 PM) [id number]
[2020-08-13 15:00] VITALS: BP 168/49
[2020-08-13 19:00] VITALS: BP 140/63
[2020-08-13] MEDS ORDERED: INSULIN LISPRO 300 UNITS/3 ML VIAL. SQ ONE (22:00)
[2020-08-13 23:00] VITALS: BP 141/63
[2020-08-14] VITALS (13 sets, daily range): BP systolic 130–182; BP diastolic 43–100
[2020-08-14] MEDS: PIPERACILLIN/TAZOBACTAM 3.375 GM in IV NORMAL SALINE 50ML 50 ML IV SCH ×4 (00:53→18:45)
[2020-08-14] MEDS: MORPHINE SULFATE 4 MG/ML VIAL. IV PRN ×4 (01:00→21:54)
[2020-08-14] MEDS: oxyCODONE/APAP 5/325 1 TAB TABLET PO PRN ×2 (06:16→18:44)
[2020-08-14] MEDS: INSULIN LISPRO 300 UNITS/3 ML VIAL. SQ SCH ×3 (08:00→17:00)
[2020-08-14] MEDS: VANCOMYCIN 1.25 GM in IV NORMAL SALINE 250ML 250 ML IV SCH ×2 (08:00→21:56)
--- NOTE | 2020-08-14 08:20 | PN ---
DATE: 08/14/2020 LOCATION: She is in room 428. CHIEF COMPLAINT AND HISTORY OF PRESENT ILLNESS: This 60-year-old white female remains hospitalized with ischemic left fourth toe. She came in with acute kidney injury and is waiting improvement in this as well as holding the metformin prior to angiography of the leg for Vascular Surgery to be able to make better plans on management of this. OBJECTIVE: VITAL SIGNS: Stable. She is afebrile. Sugars again are somewhat elevated and she is currently on sliding scale insulin. CHEST: Clear. HEART: Regular. ABDOMEN: Benign. EXTREMITIES: Left foot shows some more redness more proximally up the entire dorsum of the foot this morning, which is probably more ischemic related than infectious, but she remains on antibiotics. LABORATORY DATA: AM labs including creatinine are pending. She is n.p.o. for hopefully an arteriogram today. IMPRESSION: 1. Left fourth toe gangrene with peripheral arterial disease. 2. Acute kidney injury, improving. 3. Diabetes with elevated sugars and on sliding scale with holding of metformin. 4. Cellulitis versus ischemic changes, left foot. The left foot does remain warm. PLAN: Ongoing IV antibiotics, hydration. Hopefully, arteriogram with Vascular Surgery or IR intervention soon. OLGA SERRA MD DR: DEIRDRE/ct JOB#: [id number] / [id number]
[2020-08-14 09:07] LABS: GFR 56.6
--- NOTE | 2020-08-14 09:23 | NUR ---
SW following. Discussed with RN, pt from home with mom, room air, ada diet, IV abx. Angiogram today if labs are okay. [employer] met with pt and are submitting a medicaid application for pt. LAHCELLE will continue to follow.
[2020-08-14 09:58] LABS: VANC TR 19.6 mcg/mL (10.0-20.0)
[2020-08-14] MEDS: VANCOMYCIN PER PHARMACY MC PRN (10:16)
--- NOTE | 2020-08-14 10:17 | NUR ---
Pharmacy Vancomycin Dosing Note S:Consulted to monitor and dose vancomycin started 08/11/20. O:ELIOT BANEGAS is a 59 year old F with GANGRENOUS TOES . Height: 6 feet, 1 inches Weight: 111.5 kg [place] Body Weight: 75.40 Adjusted Body Weight: 89.84 Dosing Weight: Actual Other Antibiotics: ZOSYN LABS: Last BUN: 61 Last Creatinine: 1.0 Creatinine Clearance: 85 mL/min Last WBC: 14.1 Last Procalcitonin: Tmax (past 24 hours): 99.2 Microbiology: I/O: 400/- Drug Levels: Last Trough level: 19.6 on 08/14/20 at 0825 Last dose given 08/13/20 at 2034 Vancomycin Dosing: Loading Dose: 2000 mg x1 Dosing Weight: Actual Target Trough: 15-20 A: Based on: Therapeutic trough P: 1. Continue Vancomycin 1250 mg IV q12h 2. Follow up Trough level as needed. 3. Pharmacy will continue to monitor, follow and adjust therapy as needed. JEWELS RYAN RPH, 08/14/20 [id number]
[2020-08-14] MEDS: MORPHINE SULFATE 2 MG/ML VIAL. IVP PRN ×2 (10:25→15:05)
--- NOTE | 2020-08-14 11:29 | PDOC ---
PROGRESS NOTES Date of Service DATE: 08/14/20 TIME: 11:21 Subjective Subjective Patient complains of pain on plantar surface of foot, "feels like it is bruised". Denies left 4th toe pain. Plan for angiogram today. Objective Objective Vital Signs Date Time Temp Pulse Resp B/P (MAP) Pulse Ox O2 Delivery O2 Flow Rate FiO2 08/14/20 10:25 Room Air 08/14/20 07:00 98.3 68 14 142/100 (114) 93 98.3 Intake and Output 08/14/20 07:00 Intake Total 400 ml Balance 400 ml Intake Oral 400 ml # Voids 1 Physical Exam Physical Exam Awake and alert VSS, afebrile Non-labored respirations Abdomen soft, obese. Left 4th toe with cyanosis and blistering. Foot warm. Moderated erythema extending to midfoot. Right plantar callous located over 5th metatarsal head. Assessment Assessment Problems Medical Problems: (1) PAMELA (acute kidney injury) Status: Acute (2) Blue toe syndrome of left lower extremity Status: Acute (3) Cellulitis of foot, left Status: Acute (4) PAD (peripheral artery disease) Status: Acute Plan Plan of Care 59-year-old female with diabetes, hypertension and left 4th toe cyanosis and cellulitis. Angiogram planned for later today. Cr 1.0 Left 4th toe amputation planned for tomorrow am. If unable to close amputation site the patient will need wound vac therapy. Continue protective measures to left foot. Continue abx. Continue agressive diabetes management Continue smoking cessation, discussed at length with the patient she expresses willingness to quit. Discussed plan of care with the patient and she is willing to proceed. Comment Review of Relevant I have reviewed the following items scott (where applicable) has been applied. Labs Laboratory Tests Test 08/12/20 16:17 08/12/20 18:45 08/12/20 19:57 08/13/20 05:20 Glucose (Fingerstick) 159 mg/dL (70-99) 247 mg/dL (70-99) Vancomycin Level Trough 7.1 mcg/mL (10.0-20.0) Vancomycin Last Dose Date 08/11/20 Vancomycin Last Dose Time 1900 Sodium Level 137 mmol/L (136-145) Potassium Level 4.3 mmol/L (3.5-5.1) Chloride Level 105 mmol/L (98-107) Carbon Dioxide Level 23 mmol/L (21-32) Anion Gap 9 (6-14) Blood Urea Nitrogen 45 mg/dL (7-20) Creatinine 1.4 mg/dL (0.6-1.0) Estimated GFR (Cockcroft-Gault) 38.5 Glucose Level 149 mg/dL (70-99) Calcium Level 8.2 mg/dL (8.5-10.1) Test 08/13/20 07:18 08/13/20 11:09 08/13/20 16:25 08/13/20 20:42 Glucose (Fingerstick) 176 mg/dL (70-99) 198 mg/dL (70-99) 196 mg/dL (70-99) 255 mg/dL (70-99) Test 08/14/20 07:21 08/14/20 08:25 08/14/20 10:35 Glucose (Fingerstick) 170 mg/dL (70-99) Creatinine 1.0 mg/dL (0.6-1.0) Estimated GFR (Cockcroft-Gault) 56.6 Vancomycin Level Trough 19.6 mcg/mL (10.0-20.0) Vancomycin Last Dose Date 08/13/20 Vancomycin Last Dose Time 1999 SARS-CoV-2 Antigen (Rapid) Negative (NEGATIVE) Laboratory Tests Test 08/13/20 16:25 08/13/20 20:42 08/14/20 07:21 08/14/20 08:25 Glucose (Fingerstick) 196 mg/dL (70-99) 255 mg/dL (70-99) 170 mg/dL (70-99) Creatinine 1.0 mg/dL (0.6-1.0) Estimated GFR (Cockcroft-Gault) 56.6 Vancomycin Level Trough 19.6 mcg/mL (10.0-20.0) Vancomycin Last Dose Date 08/13/20 Vancomycin Last Dose Time 1999 Test 08/14/20 10:35 SARS-CoV-2 Antigen (Rapid) Negative (NEGATIVE) Medications Current Medications Sodium Chloride 1,000 ml @ 100 mls/hr Q10H IV Last administered on 08/10/20at 19:06; Start 08/10/20 at 18:30; Stop 08/11/20 at 04:29; Status DC Piperacillin Sod/ Tazobactam Sod 4.5 gm/Sodium Chloride 100 ml @ 200 mls/hr 1X ONCE IV Last administered on 08/10/20at 23:04; Start 08/10/20 at 18:45; Stop 08/10/20 at 19:14; Status DC Vancomycin HCl 2 gm/Sodium Chloride 500 ml @ 250 mls/hr 1X ONCE IV Last administered on 08/10/20at 19:07; Start 08/10/20 at 19:00; Stop 08/10/20 at 20:59; Status DC Hydromorphone HCl (Dilaudid) 0.5 mg 1X ONCE IVP Last administered on 08/10/20at 19:04; Start 08/10/20 at 18:45; Stop 08/10/20 at 18:46; Status DC Sodium Chloride 1,000 ml @ 1,000 mls/hr 1X ONCE IV ; Start 08/10/20 at 19:15; Stop 08/10/20 at 20:14; Status DC Sodium Chloride 1,000 ml @ 1,000 mls/hr 1X ONCE IV ; Start 08/10/20 at 19:15; Stop 08/10/20 at 20:14; Status DC Acetaminophen (Tylenol) 650 mg PRN Q4HRS PRN PO FEVER > 100.3'F; Start 08/10/20 at 20:00; Stop 08/11/20 at 19:59; Status DC Morphine Sulfate (Morphine Sulfate) 4 mg PRN Q2HR PRN IV SEVERE PAIN 7-10 Last administered on 08/14/20at 08:01; Start 08/10/20 at 22:00 Morphine Sulfate (Morphine Sulfate) 2 mg PRN Q2HR PRN IVP MODERATE PAIN 4-6 L ast administered on 08/14/20at 10:25; Start 08/10/20 at 22:00 Citalopram Hydrobromide (CeleXA) 40 mg DAILY PO Last administered on 08/13/20at 08:08; Start 08/11/20 at 14:00 Losartan Potassium (Cozaar) 100 mg DAILY PO Last administered on 08/13/20at 08: 08; Start 08/11/20 at 14:00 Pyridoxine HCl (Vitamin B-6) 50 mg DAILY PO Last administered on 08/13/20at 08:08; Start 08/11/20 at 14:00 Vitamin D (Vitamin D3) 1,000 unit DAILY PO Last administered on 08/13/20at 08:07; Start 08/11/20 at 14:00 Piperacillin Sod/ Tazobactam Sod 3.375 gm/Sodium Chloride 50 ml @ 100 mls/hr Q6HRS IV Last administered on 08/14/20at 07:50; Start 08/11/20 at 14:00 Vancomycin HCl (Vanco Per Pharmacy) 1 each PRN DAILY PRN MC SEE COMMENTS Last administered on 08/14/20at 10:16; Start 08/11/20 at 13:00 Vancomycin HCl 1.75 gm/Sodium Chloride 500 ml @ 250 mls/hr Q24H IV ; Start 08/11/20 at 19:00; Stop 08/13/20 at 11:27; Status DC Vancomycin HCl (Vancomycin Trough Level) 1 each 1X ONCE MC Last administered on 08/12/20at 18:30; Start 08/12/20 at 18:30; Stop 08/12/20 at 18:31; Status DC Lactobacillus Rhamnosus (Culturelle) 1 cap BID PO Last administered on 08/13/20at 20:33; Start 08/11/20 at 21:00 Sodium Chloride 1,000 ml @ 125 mls/hr 1X ONCE IV Last administered on at 10:41; Start 08/12/20 at 11:00; Stop 08/12/20 at 18:59; Status DC Vancomycin HCl 1.25 gm/Sodium Chloride 250 ml @ 167 mls/hr Q12H IV Last administered on 08/14/20at 08:00; Start 08/12/20 at 20:00 Vancomycin HCl (Vancomycin Trough Level) 1 each 1X ONCE MC ; Start 08/14/20 at 07:30; Stop 08/14/20 at 07:31; Status DC Insulin Human Lispro (HumaLOG) 0-5 UNITS TIDWMEALS SQ Last administered on 08/14/20at 08:00; Start 08/13/20 at 08:30 Dextrose (Dextrose 50%-Water Syringe) 12.5 gm PRN Q15MIN PRN IV SEE COMMENTS; Start 08/13/20 at 08:15 Oxycodone/ Acetaminophen (Percocet 5/325) 1 tab PRN Q4HRS PRN PO PAIN Last administered on 08/14/20at 06:16; Start 08/13/20 at 08:15 Insulin Human Lispro (HumaLOG) 2 units 1X ONCE SQ Last administered on at 22:10; Start 08/13/20 at 22:00; Stop 08/13/20 at 22:01; Status DC Cefazolin Sodium 1 gm/Sodium Chloride 500 ml @ 500 mls/hr 1X ONCE IRR ; Start 08/15/20 at 06:00; Stop 08/15/20 at 06:59 Active Scripts Active Reported Vitamin B-6 (Pyridoxine Hcl) 50 Mg Capsule 1 Cap PO DAILY 30 Days D3 + K2 Dots 1,000 Units Tab (Vitamin D3/Vitamin K2) 1 Each Tab.rapdis 1 Tab PO DAILY 30 Days Losartan Potassium 100 Mg Tablet 1 Tab PO DAILY Carisoprodol 350 Mg Tablet 1 Tab PO TID PRN Celexa (Citalopram Hydrobromide) 40 Mg Tablet 1 Tab PO DAILY Metformin Hcl 1,000 Mg Tablet 1,000 Mg PO [id number] Multi-Day Vitamins (Multivitamin) 1 Each Tablet 1 Each PO Vitals/I & O Vital Sign - Last 24 Hours 08/13/20 08/13/20 08/13/20 08/13/20 12:23 13:23 14:15 14:45 Pulse Ox 92 O2 Delivery Room Air Room Air Room Air Room Air 08/13/20 08/13/20 08/13/20 08/13/20 15:00 16:44 17:44 18:17 Temp 97.7 97.7 Pulse 65 Resp 19 B/P (MAP) 168/49 (88) Pulse Ox 96 O2 Delivery Room Air Room Air Room Air Room Air 08/13/20 08/13/20 08/13/20 08/13/20 18:47 19:00 20:00 20:30 Temp 99.2 99.2 Pulse 72 Resp 20 B/P (MAP) 140/63 (88) Pulse Ox 92 O2 Delivery Room Air Nasal Cannula Room Air Room Air 08/13/20 08/13/20 08/13/20 08/13/20 21:00 22:03 23:00 23:03 Temp 98.4 98.4 Pulse 72 Resp 20 B/P (MAP) 141/63 (89) Pulse Ox 94 O2 Delivery Room Air Room Air Room Air Room Air 12/2208/14/20 08/14/20 08/14/20 01:00 01:30 03:00 04:38 Temp 98.0 98.0 Pulse 65 Resp 20 B/P (MAP) 137/59 (85) Pulse Ox 92 O2 Delivery Room Air Room Air Room Air Room Air 08/14/20 08/14/20 08/14/20 08/14/20 05:08 06:16 07:00 07:16 Temp 98.3 98.3 Pulse 68 Resp 14 B/P (MAP) 142/100 (114) Pulse Ox 93 O2 Delivery Room Air Room Air Room Air Room Air 08/14/20 08/14/20 08:01 10:25 O2 Delivery Room Air Room Air Intake and Output 08/13/20 08/13/20 08/14/20 15:00 23:00 07:00 Intake Total 200 ml 200 ml Balance 200 ml 200 ml Justifications for Admission Other Justification LON LIU APRN Aug 14, 2020 11:29
[2020-08-14] MEDS: LOSARTAN POTASSIUM 50 MG TABLET. PO SCH (11:53)
[2020-08-14] MEDS: CITALOPRAM 20 MG TABLET. PO SCH (11:53)
[2020-08-14] MEDS ORDERED: fentaNYL PF VIAL 100 MCG/2 ML VIAL ONE (12:39)
[2020-08-14] MEDS ORDERED: HEPARIN for IV BOLUS 10,000 UNIT/10 ML VIAL. ONE (12:39)
[2020-08-14] MEDS ORDERED: MIDAZOLAM HCL/PF 2 MG/2 ML VIAL. ONE (12:39)
[2020-08-14] MEDS ORDERED: IODIXANOL 320 MG/ML 100 ML VIAL. ONE (12:42)
[2020-08-14] MEDS ORDERED: HEPARIN for ARTERIAL LINE 1,500 ML ONE (12:42)
[2020-08-14] MEDS ORDERED: LIDOCAINE WITH 8.4% SOD BICARB 3 ML DISP.SYRIN. ONE (12:42)
[2020-08-14] MEDS ORDERED: HEPARIN for IV BOLUS 10,000 UNIT/10 ML VIAL. IART ONE (14:15)
[2020-08-14] MEDS ORDERED: fentaNYL PF VIAL 100 MCG/2 ML VIAL IV ONE (14:15)
[2020-08-14] MEDS ORDERED: MIDAZOLAM HCL/PF 2 MG/2 ML VIAL. IV ONE (14:15)
[2020-08-14] MEDS ORDERED: LIDOCAINE WITH 8.4% SOD BICARB 3 ML DISP.SYRIN. IJ ONE (14:15)
[2020-08-14] MEDS ORDERED: IODIXANOL 320 MG/ML 100 ML VIAL. IART ONE (14:15)
--- NOTE | 2020-08-14 15:03 | PDOC ---
Exam Sales Trainer Sales Trainer Wali Ct Scan Special Procedures Technologist Ct Scan Special Procedures Technologist Vianca Pre-Procedure Diagnosis Pre-Procedure Diagnosis LLE ischemia. Post-Procedure Diagnosis Post-Procedure Diagnosis Same. SFA occlusion. Single vessel runoff Procedure Performed Procedure Performed LLE ANGIO LSFA stent Type of Anesthesia Type of Anesthesia Mod Sed Estimated Blood Loss EBL: 10 cc Specimens Specimans None Drain/Tubes Drains/Tubes None Condition of Patient Condition of Patient Stable Disposition Disposition LEFT SFA WATER TREATMENT TECHNICIAN treated with SE STENT. Single vessel runoff, via peroneal without proximal or adequate distal target for PT or AT revascularization. REGGIE LUGO MD Aug 14, 2020 15:03
[2020-08-14] MEDS: CHOLECALCIFEROL (VITAMIN D3) 1,000 UNIT TABLET PO SCH (16:37)
[2020-08-14] MEDS: PYRIDOXINE 50 MG TABLET. PO SCH (16:37)
[2020-08-14] MEDS: LACTOBACILLUS RHAMNOSUS GG 1 CAPSULE. PO SCH ×2 (16:37→21:55)
[2020-08-14] MEDS: cloNIDine HCL 0.1 MG TABLET PO SCH (18:44)
[2020-08-15] VITALS (11 sets, daily range): BP systolic 114–144; BP diastolic 42–98
[2020-08-15] MEDS: PIPERACILLIN/TAZOBACTAM 3.375 GM in IV NORMAL SALINE 50ML 50 ML IV SCH ×5 (00:33→23:50)
[2020-08-15] MEDS: cloNIDine HCL 0.1 MG TABLET PO SCH (00:36)
[2020-08-15] MEDS: MORPHINE SULFATE 4 MG/ML VIAL. IV PRN ×4 (01:46→22:15)
--- NOTE | 2020-08-15 06:55 | NUR ---
pt. was picked up by transportation team this morning and left the floor at 0645. This RN updated day shift RN
[2020-08-15] MEDS ORDERED: HYDROmorphone 2 MG/ML VIAL IV PRN (07:00)
[2020-08-15] MEDS ORDERED: IV RINGERS,LACTATED 1000ML 1,000 ML IV SCH (07:00)
[2020-08-15] MEDS ORDERED: MORPHINE SULFATE 2 MG/ML VIAL. IV PRN (07:00)
[2020-08-15] MEDS ORDERED: fentaNYL PF VIAL 100 MCG/2 ML VIAL IV PRN ×2 (07:00)
[2020-08-15] MEDS ORDERED: PROCHLORPERAZINE 10 MG/2 ML VIAL. IV PRN (07:00)
[2020-08-15] MEDS ORDERED: SEVOFLURANE 31 TO 60 MINUTES. IH ONE (07:06)
[2020-08-15] MEDS ORDERED: fentaNYL PF VIAL 100 MCG/2 ML VIAL ONE (07:07)
[2020-08-15] MEDS ORDERED: LIDOCAINE 2% PF 5 ML VIAL. ONE (07:07)
[2020-08-15] MEDS ORDERED: ONDANSETRON PF 4 MG/2 ML VIAL. ONE (07:07)
[2020-08-15] MEDS ORDERED: MIDAZOLAM HCL/PF 2 MG/2 ML VIAL. ONE (07:07)
[2020-08-15] MEDS ORDERED: DEXAMETHASONE SOD PHOS 4 MG/ML VIAL ONE (07:07)
[2020-08-15] MEDS ORDERED: PROPOFOL 10 MG/ML (20ML) VIAL. IV ONE (07:07)
[2020-08-15] MEDS: INSULIN LISPRO 100 UNIT/ML 3ML VIAL for OP,RR ONLY. SQ PRN ×2 (07:11→08:29)
[2020-08-15] MEDS ORDERED: cloNIDine HCL 0.1 MG TABLET PO PRN (07:30)
[2020-08-15] MEDS: INSULIN LISPRO 300 UNITS/3 ML VIAL. SQ SCH ×3 (08:00→17:50)
[2020-08-15] MEDS: VANCOMYCIN 1.25 GM in IV NORMAL SALINE 250ML 250 ML IV SCH ×2 (08:00→20:34)
--- NOTE | 2020-08-15 08:23 | PDOC ---
BRIEF OPERATIVE NOTE Date: Aug 15, 2020 Pre-Op Diagnosis Left 4th toe gangrene with ascending cellulitis PAD s/p angioplasty Post-Op Diagnosis Same Procedure Performed Left 4th toe ray amputation, open Surgeon Ramirez Pretty MD Bank Courier None Anesthesia Type: General Blood Loss 10mL Specimens Obtained Left 4th toe Cultures sent Findings Good bleeding Complications None Operative Note See dictated op note CHEIKH OVALLE Aug 15, 2020 08:23
--- NOTE | 2020-08-15 08:32 | OP ---
DATE OF SURGERY: 08/15/2020 PREOPERATIVE DIAGNOSIS: Arterial insufficiency with gangrene of the left fourth toe. POSTOPERATIVE DIAGNOSIS: Arterial insufficiency with gangrene of the left fourth toe. OPERATION PERFORMED: Left fourth ray amputation. SURGEON: Ramirez Pretty MD ANESTHESIA: General. INDICATIONS: This is a 59-year-old female who presents with gangrene of the left fourth toe with ascending cellulitis. She underwent preprocedure angiographic evaluation and percutaneous intervention. She required angioplasty of the left superficial femoral artery in which a stent was placed. She has a single vessel runoff via the peroneal artery with good collateral flow into the foot. She presents today for ray amputation of the fourth gangrenous toe. The operation, risks, and benefits were explained to the patient, who understood and wished to proceed. Following wedge excision of the left fourth toe and metatarsal head, there was excellent bleeding from the remaining tissues. The wound was packed open and she will need to have a wound VAC placement tomorrow, 08/16. DESCRIPTION OF PROCEDURE: The patient was placed on the operating table and general anesthetic was administered by Anesthesia. She received preoperative IV antibiotics. The left foot was prepped and draped with Betadine and a timeout was called. The left fourth toe was excised circumferentially at the base and the metatarsophalangeal joint was identified and the toe removed. Using a rongeur, the metatarsal head was resected back to normal bone. Cultures were obtained and sent for aerobes and anaerobes. The surrounding tissues were then excised sharply with a scalpel back to bleeding tissue. There appeared to be some fluctuance just proximal to the fourth toe. A hemostat was placed and did appear to be some undermining to this area. For this reason, an incision was made on the dorsum of the foot for approximately 2 inches more proximally. Bleeding was excellent, there was no evidence of gross purulence. The wound was then copiously irrigated with antibiotic irrigation and then packed with moistened gauze and a sterile dressing was applied. The patient tolerated the procedure well and was taken to the recovery room in satisfactory condition. SPECIMENS: Left fourth toe and cultures sent to microbiology. ESTIMATED BLOOD LOSS: 10 mL. DRAINS: None. RAMIREZ PRETTY MD DR: JESUS/ct JOB#: [id number] / [id number]
--- NOTE | 2020-08-15 09:12 | PN ---
DATE: 08/15/2020 LOCATION: She is in room 428. SUBJECTIVE: The patient has just been taken down for left fourth toe amputation. She did have balloon and stenting of her femoral artery yesterday on the left by Interventional Radiology. OBJECTIVE: VITAL SIGNS: Stable. She is afebrile. Creatinine was down to 1 yesterday. She remains on sliding scale insulin. I am going to check another BMP in the morning and she may be able to go back on metformin pending renal function. CHEST: Clear. HEART: Regular. ABDOMEN: Benign. IMPRESSION: 1. Left fourth toe gangrene with peripheral arterial disease for amputation. 2. Acute kidney injury, resolved. 3. Diabetes with elevated blood sugars on sliding scale insulin with holding of metformin. 4. Cellulitis versus ischemic change dorsum of the left foot. PLAN: Continue present supportive care. Agree with amputation of the toe. Hopefully, there will be good bleeding there and I am going to be able to move her towards discharge relatively quickly. OLGA SERRA MD DR: DEIRDRE/ct JOB#: [id number] / [id number]
--- NOTE | 2020-08-15 09:31 | NUR ---
SW following. Discussed with RN, pt from home with mom, room air, NPO, rapid COVID negative. Pt having a toe amputation this morning. IV abx. SW will continue to follow.
[2020-08-15] MEDS: VANCOMYCIN PER PHARMACY MC PRN (09:37)
[2020-08-15 10:00] LABS: GFR 56.6
[2020-08-15] MEDS: MORPHINE SULFATE 2 MG/ML VIAL. IVP PRN (10:55)
[2020-08-15] MEDS: PYRIDOXINE 50 MG TABLET. PO SCH (12:07)
[2020-08-15] MEDS: LOSARTAN POTASSIUM 50 MG TABLET. PO SCH (12:07)
[2020-08-15] MEDS: LACTOBACILLUS RHAMNOSUS GG 1 CAPSULE. PO SCH ×2 (12:07→20:35)
[2020-08-15] MEDS: CHOLECALCIFEROL (VITAMIN D3) 1,000 UNIT TABLET PO SCH (12:07)
[2020-08-15] MEDS: oxyCODONE/APAP 5/325 1 TAB TABLET PO PRN ×2 (12:08→20:35)
[2020-08-15] MEDS: CITALOPRAM 20 MG TABLET. PO SCH (12:08)
[2020-08-15] MEDS: CLOPIDOGREL BISULFATE 75 MG TABLET PO SCH (12:13)
[2020-08-16 03:00] VITALS: BP 117/57
[2020-08-16] MEDS: oxyCODONE/APAP 5/325 1 TAB TABLET PO PRN ×3 (03:10→22:44)
[2020-08-16] MEDS: PIPERACILLIN/TAZOBACTAM 3.375 GM in IV NORMAL SALINE 50ML 50 ML IV SCH ×3 (05:35→15:00)
[2020-08-16] MEDS: MORPHINE SULFATE 4 MG/ML VIAL. IV PRN ×4 (05:50→20:23)
[2020-08-16 07:00] VITALS: BP 147/71
[2020-08-16] MEDS: INSULIN LISPRO 300 UNITS/3 ML VIAL. SQ SCH ×3 (08:00→17:00)
[2020-08-16] MEDS ORDERED: LIDOCAINE WITH 8.4% SOD BICARB 3 ML DISP.SYRIN. ONE (09:02)
--- NOTE | 2020-08-16 09:04 | PDOC ---
Provider Note Date of Service: DATE: 08/16/20 TIME: 08:55 Provider Note Provider Note Vascular S: Pt doing well post operatively, very motivated to improve her health with recent events. Motivated to quit smoking and take better care of diabetes. O: VSS, afebrile Awake, alert, in no apparent distress Left 4th toe amp site clean, minimal bloody ooze from proximal wound corner, skin edges clean. Wound bed pink, no ischemia. Bone exposed. Moderate erythema extending up to midfoot (improved from yesterday). Left PT and DP doppler signals present, DP monophasic Reviewed images of AARO, L SFA stent placement A/P PAD s/p L SFA stent placement Left 4th toe gangrene - s/p open toe amp - Place wound vac, continue wound vac therapy, change 3x week - will need home health - Left forefoot offloading - can use half shoe for transfers - Consult ID for abx management, bone exposed, will need outpt IV abx - PICC ordered - Needs to continue plavix - ok for discharge from our standpoint with above arrangements. Will follow up with us as scheduled - discussed with RN and WC RN. Justicifation of Admission Dx: Justifications for Admission: Justification of Admission Dx: Yes Comments: Post op: Needs PICC, home wound vac, home health arranged CHEIKH OVALLE Aug 16, 2020 09:04
[2020-08-16] MEDS ORDERED: LIDOCAINE WITH 8.4% SOD BICARB 3 ML DISP.SYRIN. INJ ONE (09:15)
--- NOTE | 2020-08-16 09:50 | NUR ---
SW following. Discussed with RN, pt needing home wound vac - wound care team will work on the [facility] wound vac. Per chart, pt needing PICC line for IV abx - pt has no insurance so will have to do outpatient infusion which will need to be approved by administration. IV abx will need to be a q24 option. Pt cannot have home health and outpatient infusion. ID consulted today. LACHELLE will continue to follow. Addendum: 08/16/20 at 1328 by ROSIE LAROSE LACHELLE faxed script to outpatient infusion. Shoshana Steele approved daily Dapto and Invanz, as well as wound care. Pt not discharging today - possible discharge tomorrow (08/17/2020) with start of outpatient on 08/18/2020. Pt to go to the ER at 11am on 08/18 and 08/19. On 08/20 pt to go to outpatient registration. RN notified. Pt notified.
[2020-08-16] MEDS: CITALOPRAM 20 MG TABLET. PO SCH (10:30)
[2020-08-16] MEDS: CHOLECALCIFEROL (VITAMIN D3) 1,000 UNIT TABLET PO SCH (10:30)
[2020-08-16] MEDS: PYRIDOXINE 50 MG TABLET. PO SCH (10:30)
[2020-08-16] MEDS: LOSARTAN POTASSIUM 50 MG TABLET. PO SCH (10:31)
[2020-08-16] MEDS: CLOPIDOGREL BISULFATE 75 MG TABLET PO SCH (10:31)
[2020-08-16] MEDS: LACTOBACILLUS RHAMNOSUS GG 1 CAPSULE. PO SCH ×2 (10:31→20:22)
[2020-08-16 10:50] VITALS: BP 128/80
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
--- NOTE | 2020-08-16 12:43 | NUR ---
Wound/Ostomy Care Wound Type/Assessment: Pt seen per wound care for wound vac placement to left 4the toe amputation site done by vascular. Dressing removed and wound cleansed, assessed, measured, and pictured. There is bone and tendon exposed. Skin prepped for wound vac, an ostomy ring placed to margie-wound, one piece of mejia foam placed to wound bed, vac tracked up to left medial lower leg. A good seal maintained at 125mmHg continuously. Treatment Recommendations/Plan: Discharge with [facility] home vac once approved. Pt will follow up with us in outpatient department. Education provided: Pt educated on wound vac therapy, alarms, dressing changes, trouble shooting, etc. Pt v/u. Offloading surface/device: Pt has Darco shoe and encouraged to use walker and minimize pressure to left foot. A Rooke boot also ordered for this patient. Recommended Referrals/Tests: Pt will follow up in the outpatient department as directed. Discharge Recommendations for dressings: Same as above. Anticipated discharge for tomorrow. Pt to be switched over to home vac once approved prior to discharge. RN shown how to switch to home vac. Bed lowered and call light in reach. Will see patient on Thursday in the outpatient department.
--- NOTE | 2020-08-16 13:06 | RAD ---
Exam: Fluoroscopic and ultrasound guided right percutaneous inserted central venous catheter placement 08/16/2020 11:02 AM .Indication: Antibiotics Technique: Informed oral and written consent were obtained. The right upper extremity was prepped and draped using sterile barrier technique. All elements of maximal sterile barrier technique including the use of a cap, mask, sterile gown, sterile gloves, large sterile sheet, appropriate hand hygiene, and 2% chlorhexidine for cutaneous antisepsis (or acceptable alternative antiseptic per current guidelines) were followed for this procedure.. Real-time ultrasound demonstrated a patent right basilic vein which was prepped and draped in usual sterile fashion. 1% lidocaine used for local anesthesia. Using real-time ultrasound guidance the access needle percutaneously punctured the selected right basilic vein. Reference ultrasound images were saved to the medical record. A guidewire was advanced through the needle to the cavoatrial junction, and a peel-away sheath placed. The catheter was cut to length and inserted through the peel-away sheath such that its tip is at the cavoatrial junction. The wire and sheath were removed, and the catheter secured in place, and a sterile dressing was applied. Catheter was found to flush and aspirate normally. No immediate complications are identified. FLUORO TIME: 0.8 DOSE AREA PRODUCT: 1 Gycm2 Impression: Ultrasound and fluoroscopically guided placement of a right upper extremity PICC line.
[2020-08-16 13:20] LABS: CALCIUM 8.8 mg/dL (8.5-10.1); CREATININE 1.1 mg/dL (0.6-1.0); GFR 50.7; POTASSIUM 4.3 mmol/L (3.5-5.1)
[2020-08-16 15:00] VITALS: BP 154/66
[2020-08-16] MEDS: DAPTOmycin (GENERIC) IVPB 540 MG in IV NORMAL SALINE 50ML 50 ML IV SCH (16:38)
[2020-08-16 19:00] VITALS: BP 163/56
--- NOTE | 2020-08-16 20:07 | PN ---
DATE: 08/16/2020 LOCATION: She is in room 428. SUBJECTIVE: The patient is postop and having no significant discomfort after open amputation of left fifth toe and part of the metatarsal. There was good bleeding at the time of the operative note with lot of infection present. She has left open wound ____. ID has been consulted for guidance on IV therapy and PICC line has been ____ Vascular Surgery. OBJECTIVE: VITAL SIGNS: Stable. She is afebrile. She remains on sliding scale insulin. CHEST: Clear. HEART: Regular. ABDOMEN: Benign ____. LABORATORY DATA: I will check a BMP this morning, as I ordered it yesterday morning after seeing renal function, it remains good. She is afebrile with treatment at this point in time. IMPRESSION: 1. ____ gram-positive cocci. 2. Acute kidney injury, resolved. 3. Diabetes with elevated blood sugar, on insulin. 4. Cellulitis of the foot, unable to examine the skin due to dressing. PLAN: Continue supportive care. Await ID consult. We will check a BMP with restarting metformin, ____. OLGA SERRA MD DR: DEIRDRE/ct JOB#: [id number] / [id number]
[2020-08-16 23:00] VITALS: BP 174/70
[2020-08-17] MEDS: PIPERACILLIN/TAZOBACTAM 3.375 GM in IV NORMAL SALINE 50ML 50 ML IV SCH ×2 (00:44→05:41)
[2020-08-17] MEDS: MORPHINE SULFATE 4 MG/ML VIAL. IV PRN ×8 (00:52→22:04)
[2020-08-17 03:00] VITALS: BP 146/65
[2020-08-17 07:00] VITALS: BP 131/65
[2020-08-17] MEDS: CLOPIDOGREL BISULFATE 75 MG TABLET PO SCH (08:21)
[2020-08-17] MEDS: LACTOBACILLUS RHAMNOSUS GG 1 CAPSULE. PO SCH ×2 (08:21→20:57)
[2020-08-17] MEDS: PYRIDOXINE 50 MG TABLET. PO SCH (08:21)
[2020-08-17] MEDS: oxyCODONE/APAP 5/325 1 TAB TABLET PO PRN ×2 (08:22→17:20)
[2020-08-17] MEDS: CHOLECALCIFEROL (VITAMIN D3) 1,000 UNIT TABLET PO SCH (08:22)
[2020-08-17] MEDS: CITALOPRAM 20 MG TABLET. PO SCH (08:22)
[2020-08-17] MEDS: LOSARTAN POTASSIUM 50 MG TABLET. PO SCH (08:22)
[2020-08-17] MEDS: INSULIN LISPRO 300 UNITS/3 ML VIAL. SQ SCH ×3 (08:30→17:14)
[2020-08-17] MEDS: DAPTOmycin (GENERIC) IVPB 540 MG in IV NORMAL SALINE 50ML 50 ML IV SCH (10:01)
--- NOTE | 2020-08-17 10:29 | PDOC ---
Infectious Disease Note Subjective: Subjective Patient without complaint except for intermittent throbbing pain at the surgical site is under control with pain medicine Denies fever chills nausea vomiting diarrhea abdominal pain Vital Signs: Vital Signs Vital Signs Date Time Temp Pulse Resp B/P (MAP) Pulse Ox O2 Delivery O2 Flow Rate FiO2 08/17/20 10:01 Room Air 08/17/20 09:22 92 08/17/20 08:22 60 146/65 08/17/20 07:00 98.2 18 98.2 08/17/20 05:13 2.0 Physical Exam: PHYSICAL EXAM GENERAL: Alert, oriented x 3, pleasant female, lying in bed comfortably, in no acute distress. HEENT: Normocephalic, atraumatic, anicteric. NECK: Supple, no JVD. LUNGS: Clear bilaterally. No wheezing. HEART: S1, S2. ABDOMEN: Soft, nontender, nondistended. EXTREMITIES: Left foot wound dressed not taken down, mycotic toenails. NEUROLOGIC: Alert and oriented x 3, grossly nonfocal. PSYCHIATRIC: Cooperative, appropriate mood and affect. Right upper extremity PICC line placed on 08/16/2020, clean. Medications: Inpatient Meds: Current Medications Medications (Trade) Dose Ordered Sig/Lesley Start Time Stop Time Status Last Admin Dose Admin Acetaminophen (Tylenol) 650 mg PRN Q4HRS PRN 08/10/20 20:00 08/11/20 19:59 DC Cefazolin Sodium 1 gm/Sodium Chloride 500 ml @ 500 mls/hr 1X ONCE 08/15/20 06:00 08/15/20 06:59 DC 08/15/20 07:58 Citalopram Hydrobromide (CeleXA) 40 mg DAILY 08/11/20 14:00 08/17/20 08:22 40 MG Clonidine HCl (Catapres) 0.1 mg PRN Q6HRS PRN 08/15/20 07:30 08/16/20 23:21 0.1 MG Clopidogrel Bisulfate (Plavix) 75 mg DAILYWBKFT 08/15/20 08:15 08/17/20 08:21 75 MG Daptomycin 540 mg/ Sodium Chloride 50 ml @ 100 mls/hr Q24H 08/16/20 11:00 08/17/20 10:01 100 MLS/HR Dexamethasone Sodium Phosphate (Decadron) 4 mg STK-MED ONCE 08/15/20 07:07 08/15/20 07:07 DC Dextrose (Dextrose 50%-Water Syringe) 12.5 gm PRN Q15MIN PRN 08/13/20 08:15 Ephedrine Sulfate (Akovaz) 50 mg STK-MED ONCE 08/15/20 07:54 08/15/20 07:54 DC Fentanyl Citrate (Fentanyl 2ml Vial) 100 mcg STK-MED ONCE 08/15/20 07:07 08/15/20 07:07 DC Heparin Sodium (Porcine) (Heparin Sodium) 5,000 unit 1X ONCE 08/14/20 14:15 08/14/20 14:16 DC 08/14/20 14:15 5,000 UNIT Heparin Sodium/ Sodium Chloride (HEPARIN for ARTERIAL LINE FLUSH) 1,000 unit 1X ONCE 08/14/20 14:15 08/14/20 14:16 DC 08/14/20 14:14 1,000 UNIT Hydromorphone HCl (Dilaudid) 0.5 mg PRN Q10MIN PRN 08/15/20 07:00 08/16/20 06:59 DC Insulin Human Lispro (HumaLOG VIAL for OP,RR ONLY) 0-10 units PRN Q1HR PRN 08/15/20 06:45 08/16/20 06:44 DC 08/15/20 08:29 2 UNIT Insulin Human Lispro (HumaLOG) 2 units 1X ONCE 08/13/20 22:00 08/13/20 22:01 DC 08/13/20 22:10 2 UNITS Iodixanol (Visipaque 320) 100 ml 1X ONCE 08/14/20 14:15 08/14/20 14:16 DC 08/14/20 14:14 69 ML Lactobacillus Rhamnosus (Culturelle) 1 cap BID 08/11/20 21:00 08/17/20 08:21 1 CAP Lidocaine HCl (Buffered Lidocaine 1%) 6 ml 1X ONCE 08/16/20 09:15 08/16/20 09:16 DC 08/16/20 09:22 3 ML Lidocaine HCl (Lidocaine Pf 2% Vial) 5 ml STK-MED ONCE 08/15/20 07:07 08/15/20 07:07 DC Losartan Potassium (Cozaar) 100 mg DAILY 08/11/20 14:00 08/17/20 08:22 100 MG Midazolam HCl (Versed) 2 mg STK-MED ONCE 08/15/20 07:07 08/15/20 07:07 DC Morphine Sulfate (Morphine Sulfate) 1 mg PRN Q10MIN PRN 08/15/20 07:00 08/16/20 06:59 DC Ondansetron HCl (Zofran) 4 mg STK-MED ONCE 08/15/20 07:07 08/15/20 07:07 DC Oxycodone/ Acetaminophen (Percocet 5/325) 1 tab PRN Q4HRS PRN 08/13/20 08:15 08/17/20 08:22 1 TAB Piperacillin Sod/ Tazobactam Sod 3.375 gm/Sodium Chloride 50 ml @ 100 mls/hr Q6HRS 08/11/20 14:00 08/17/20 05:41 100 MLS/HR Piperacillin Sod/ Tazobactam Sod 4.5 gm/Sodium Chloride 100 ml @ 200 mls/hr 1X ONCE 08/10/20 18:45 08/10/20 19:14 DC 08/10/20 23:04 200 MLS/HR Prochlorperazine Edisylate (Compazine) 5 mg PACU PRN PRN 08/15/20 07:00 08/16/20 06:59 DC Propofol (Diprivan) 200 mg STK-MED ONCE 08/15/20 07:07 08/15/20 07:07 DC Pyridoxine HCl (Vitamin B-6) 50 mg DAILY 08/11/20 14:00 08/17/20 08:21 50 MG Ringer's Solution 1,000 ml @ 30 mls/hr Q24H 08/15/20 07:00 08/15/20 18:59 DC 08/15/20 07:15 30 MLS/HR Sevoflurane (Ultane) 30 ml STK-MED ONCE 08/15/20 07:06 08/15/20 07:07 DC Sodium Chloride 1,000 ml @ 125 mls/hr 1X ONCE 08/12/20 11:00 08/12/20 18:59 DC 08/12/20 10:41 125 MLS/HR Vancomycin HCl (Vanco Per Pharmacy) 1 each PRN DAILY PRN 08/11/20 13:00 08/16/20 10:04 DC 12/23/20 09:37 1 EACH Vancomycin HCl (Vancomycin Trough Level) 1 each 1X ONCE 08/14/20 07:30 08/14/20 07:31 DC 08/14/20 07:30 1 EACH Vancomycin HCl 1.25 gm/Sodium Chloride 250 ml @ 167 mls/hr Q12H 08/12/20 20:00 08/16/20 10:03 DC 08/15/20 20:34 167 MLS/HR Vancomycin HCl 1.75 gm/Sodium Chloride 500 ml @ 250 mls/hr Q24H 08/11/20 19:00 08/13/20 11:27 DC Vancomycin HCl 2 gm/Sodium Chloride 500 ml @ 250 mls/hr 1X ONCE 08/10/20 19:00 08/10/20 20:59 DC 08/10/20 19:07 250 MLS/HR Vitamin D (Vitamin D3) 1,000 unit DAILY 08/11/20 14:00 08/17/20 08:22 1,000 UNIT Labs: Lab Laboratory Tests Test 08/16/20 11:42 08/16/20 13:00 08/16/20 16:47 08/16/20 20:53 Glucose (Fingerstick) 186 mg/dL (70-99) 171 mg/dL (70-99) 181 mg/dL (70-99) Sodium Level 138 mmol/L (136-145) Potassium Level 4.3 mmol/L (3.5-5.1) Chloride Level 103 mmol/L (98-107) Carbon Dioxide Level 27 mmol/L (21-32) Anion Gap 8 (6-14) Blood Urea Nitrogen 23 mg/dL (7-20) Creatinine 1.1 mg/dL (0.6-1.0) Estimated GFR (Cockcroft-Gault) 50.7 Glucose Level 183 mg/dL (70-99) Calcium Level 8.8 mg/dL (8.5-10.1) Test 08/17/20 07:55 08/17/20 08:30 Glucose (Fingerstick) 185 mg/dL (70-99) Creatine Kinase 23 U/L (26-192) Objective: Assessment: 1. Left fourth toe gangrene, status post open toe amputation on 08/15/2020. Cultures methicillin sensitive staph aureus 2. Peripheral arterial disease, status post left SFA stent placement. 3. Diabetes mellitus, poorly controlled. 4. Leukocytosis. 5. Acute kidney injury, improved. 6. History of smoking. 7. History of left foot cellulitis. Plan: Plan of Care DC Zosyn and daptomycin Start cefazolin 2 g IV every 8hrs Continue local wound care as directed Continue supportive care Discussed with RN Discussed with family at bedside CARO OLIVER MD Aug 17, 2020 10:29
[2020-08-17 11:00] VITALS: BP 128/62
[2020-08-17 15:00] VITALS: BP 159/73
[2020-08-17 19:25] VITALS: BP 139/52
[2020-08-17 23:36] VITALS: BP 153/53
[2020-08-18] MEDS: MORPHINE SULFATE 4 MG/ML VIAL. IV PRN ×2 (00:49→05:25)
[2020-08-18 03:03] VITALS: BP 128/51
[2020-08-18] MEDS: oxyCODONE/APAP 5/325 1 TAB TABLET PO PRN ×4 (05:24→19:59)
[2020-08-18 07:00] VITALS: BP 152/70
[2020-08-18] MEDS: CHOLECALCIFEROL (VITAMIN D3) 1,000 UNIT TABLET PO SCH (08:01)
[2020-08-18] MEDS: LACTOBACILLUS RHAMNOSUS GG 1 CAPSULE. PO SCH ×2 (08:01→19:58)
[2020-08-18] MEDS: LOSARTAN POTASSIUM 50 MG TABLET. PO SCH (08:01)
[2020-08-18] MEDS: PYRIDOXINE 50 MG TABLET. PO SCH (08:01)
[2020-08-18] MEDS: CLOPIDOGREL BISULFATE 75 MG TABLET PO SCH (08:01)
[2020-08-18] MEDS: CITALOPRAM 20 MG TABLET. PO SCH (08:02)
[2020-08-18] MEDS: INSULIN LISPRO 300 UNITS/3 ML VIAL. SQ SCH ×3 (08:10→17:57)
--- NOTE | 2020-08-18 09:50 | PDOC ---
Provider Note Date of Service: DATE: 08/18/20 TIME: 09:45 Provider Note vss, no temp, labs noted- will check a1c, resume metformin as 500 bid, follow on ancef for now- picc line out, needs replaced Justifications for Admission Other Justification JYOTI JONES MD Aug 18, 2020 09:50
[2020-08-18 09:58] LABS: BASO % 0 % (0-3); EOS # 0.2 x10^3/uL (0.0-0.7); EOS % 2 % (0-3); HEMATOCRIT 31.2 % (36.0-47.0); HEMOGLOBIN 10.4 g/dL (12.0-15.5); LYMPH # 1.9 x10^3/uL (1.0-4.8); LYMPH % 19 % (24-48); MEAN CORPUSCULAR HEMOGLOBIN 31 pg (25-35); MEAN CORPUSCULAR HGB CONC 33 g/dL (31-37); MEAN CORPUSCULAR VOLUME 92 fL (79-100); MONO # 0.6 x10^3/uL (0.0-1.1); MONO % 6 % (0-9); NEUT # 7.1 x10^3/uL (1.8-7.7); NEUT % 73 % (31-73); PLATELET COUNT 348 x10^3/uL (140-400); RED BLOOD COUNT 3.41 x10^6/uL (3.50-5.40); WHITE BLOOD COUNT 9.8 x10^3/uL (4.0-11.0)
--- NOTE | 2020-08-18 10:21 | PDOC ---
Infectious Disease Note Subjective: Subjective Patient without complaints except for PICC line has come out Postop pain is under control Denies fever chills nausea vomiting diarrhea abdominal pain Vital Signs: Vital Signs Vital Signs Date Time Temp Pulse Resp B/P (MAP) Pulse Ox O2 Delivery O2 Flow Rate FiO2 08/18/20 09:23 Room Air 08/18/20 08:01 71 152/70 08/18/20 07:00 99.4 20 94 99.4 08/18/20 06:14 2.0 Physical Exam: PHYSICAL EXAM GENERAL: Alert, oriented x 3, pleasant female, lying in bed comfortably, in no acute distress. HEENT: Normocephalic, atraumatic, anicteric. NECK: Supple, no JVD. LUNGS: Clear bilaterally. No wheezing. HEART: S1, S2. ABDOMEN: Soft, nontender, nondistended. EXTREMITIES: Left foot wound dressed not taken down, mycotic toenails. NEUROLOGIC: Alert and oriented x 3, grossly nonfocal. PSYCHIATRIC: Cooperative, appropriate mood and affect. Medications: Inpatient Meds: Current Medications Medications (Trade) Dose Ordered Sig/Lesley Start Time Stop Time Status Last Admin Dose Admin Acetaminophen (Tylenol) 650 mg PRN Q4HRS PRN 08/10/20 20:00 08/11/20 19:59 DC Cefazolin Sodium 1 gm/Sodium Chloride 500 ml @ 500 mls/hr 1X ONCE 08/15/20 06:00 08/15/20 06:59 DC 08/15/20 07:58 Cefazolin Sodium/ Dextrose 50 ml @ 100 mls/hr Q8HRS 08/17/20 14:00 08/18/20 05:23 100 MLS/HR Citalopram Hydrobromide (CeleXA) 40 mg DAILY 08/11/20 14:00 08/18/20 08:02 40 MG Clonidine HCl (Catapres) 0.1 mg PRN Q6HRS PRN 08/15/20 07:30 08/16/20 23:21 0.1 MG Clopidogrel Bisulfate (Plavix) 75 mg DAILYWBKFT 08/15/20 08:15 08/18/20 08:01 75 MG Daptomycin 540 mg/ Sodium Chloride 50 ml @ 100 mls/hr Q24H 08/16/20 11:00 08/17/20 10:30 DC 08/17/20 10:01 100 MLS/HR Dexamethasone Sodium Phosphate (Decadron) 4 mg STK-MED ONCE 08/15/20 07:07 08/15/20 07:07 DC Dextrose (Dextrose 50%-Water Syringe) 12.5 gm PRN Q15MIN PRN 08/13/20 08:15 Ephedrine Sulfate (Akovaz) 50 mg STK-MED ONCE 08/15/20 07:54 08/15/20 07:54 DC Fentanyl Citrate (Fentanyl 2ml Vial) 100 mcg STK-MED ONCE 08/15/20 07:07 08/15/20 07:07 DC Heparin Sodium (Porcine) (Heparin Sodium) 5,000 unit 1X ONCE 08/14/20 14:15 08/14/20 14:16 DC 08/14/20 14:15 5,000 UNIT Heparin Sodium/ Sodium Chloride (HEPARIN for ARTERIAL LINE FLUSH) 1,000 unit 1X ONCE 08/14/20 14:15 08/14/20 14:16 DC 08/14/20 14:14 1,000 UNIT Hydromorphone HCl (Dilaudid) 0.5 mg PRN Q10MIN PRN 08/15/20 07:00 08/16/20 06:59 DC Insulin Human Lispro (HumaLOG VIAL for OP,RR ONLY) 0-10 units PRN Q1HR PRN 08/15/20 06:45 08/16/20 06:44 DC 08/15/20 08:29 2 UNIT Insulin Human Lispro (HumaLOG) 2 units 1X ONCE 08/13/20 22:00 08/13/20 22:01 DC 08/13/20 22:10 2 UNITS Iodixanol (Visipaque 320) 100 ml 1X ONCE 08/14/20 14:15 08/14/20 14:16 DC 08/14/20 14:14 69 ML Lactobacillus Rhamnosus (Culturelle) 1 cap BID 08/11/20 21:00 08/18/20 08:01 1 CAP Lidocaine HCl (Buffered Lidocaine 1%) 6 ml 1X ONCE 08/16/20 09:15 08/16/20 09:16 DC 08/16/20 09:22 3 ML Lidocaine HCl (Lidocaine Pf 2% Vial) 5 ml STK-MED ONCE 08/15/20 07:07 08/15/20 07:07 DC Losartan Potassium (Cozaar) 100 mg DAILY 08/11/20 14:00 08/18/20 08:01 100 MG Metformin HCl (Glucophage) 1,000 mg DAILYWBKFT 08/19/20 08:00 Midazolam HCl (Versed) 2 mg STK-MED ONCE 08/15/20 07:07 08/15/20 07:07 DC Morphine Sulfate (Morphine Sulfate) 1 mg PRN Q10MIN PRN 08/15/20 07:00 08/16/20 06:59 DC Ondansetron HCl (Zofran) 4 mg STK-MED ONCE 08/15/20 07:07 08/15/20 07:07 DC Oxycodone/ Acetaminophen (Percocet 5/325) 1 tab PRN Q4HRS PRN 08/13/20 08:15 08/18/20 09:23 1 TAB Piperacillin Sod/ Tazobactam Sod 3.375 gm/Sodium Chloride 50 ml @ 100 mls/hr Q6HRS 08/11/20 14:00 08/17/20 10:30 DC 08/17/20 05:41 100 MLS/HR Piperacillin Sod/ Tazobactam Sod 4.5 gm/Sodium Chloride 100 ml @ 200 mls/hr 1X ONCE 08/10/20 18:45 08/10/20 19:14 DC 08/10/20 23:04 200 MLS/HR Prochlorperazine Edisylate (Compazine) 5 mg PACU PRN PRN 08/15/20 07:00 08/16/20 06:59 DC Propofol (Diprivan) 200 mg STK-MED ONCE 08/15/20 07:07 08/15/20 07:07 DC Pyridoxine HCl (Vitamin B-6) 50 mg DAILY 08/11/20 14:00 08/18/20 08:01 50 MG Ringer's Solution 1,000 ml @ 30 mls/hr Q24H 08/15/20 07:00 08/15/20 18:59 DC 08/15/20 07:15 30 MLS/HR Sevoflurane (Ultane) 30 ml STK-MED ONCE 08/15/20 07:06 08/15/20 07:07 DC Sodium Chloride 1,000 ml @ 125 mls/hr 1X ONCE 08/12/20 11:00 08/12/20 18:59 DC 08/12/20 10:41 125 MLS/HR Vancomycin HCl (Vanco Per Pharmacy) 1 each PRN DAILY PRN 08/11/20 13:00 08/16/20 10:04 DC 08/15/20 09:37 1 EACH Vancomycin HCl (Vancomycin Trough Level) 1 each 1X ONCE 08/14/20 07:30 08/14/20 07:31 DC 08/14/20 07:30 1 EACH Vancomycin HCl 1.25 gm/Sodium Chloride 250 ml @ 167 mls/hr Q12H 08/12/20 20:00 08/16/20 10:03 DC 08/15/20 20:34 167 MLS/HR Vancomycin HCl 1.75 gm/Sodium Chloride 500 ml @ 250 mls/hr Q24H 08/11/20 19:00 08/13/20 11:27 DC Vancomycin HCl 2 gm/Sodium Chloride 500 ml @ 250 mls/hr 1X ONCE 08/10/20 19:00 08/10/20 20:59 DC 08/10/20 19:07 250 MLS/HR Vitamin D (Vitamin D3) 1,000 unit DAILY 08/11/20 14:00 08/18/20 08:01 1,000 UNIT Labs: Lab Laboratory Tests Test 08/17/20 12:06 08/17/20 16:45 08/17/20 21:33 08/18/20 07:12 Glucose (Fingerstick) 217 mg/dL (70-99) 202 mg/dL (70-99) 283 mg/dL (70-99) 152 mg/dL (70-99) Test 08/18/20 09:39 White Blood Count 9.8 x10^3/uL (4.0-11.0) Red Blood Count 3.41 x10^6/uL (3.50-5.40) Hemoglobin 10.4 g/dL (12.0-15.5) Hematocrit 31.2 % (36.0-47.0) Mean Corpuscular Volume 92 fL (79-100) Mean Corpuscular Hemoglobin 31 pg (25-35) Mean Corpuscular Hemoglobin Concent 33 g/dL (31-37) Red Cell Distribution Width 14.0 % (11.5-14.5) Platelet Count 348 x10^3/uL (140-400) Neutrophils (%) (Auto) 73 % (31-73) Lymphocytes (%) (Auto) 19 % (24-48) Monocytes (%) (Auto) 6 % (0-9) Eosinophils (%) (Auto) 2 % (0-3) Basophils (%) (Auto) 0 % (0-3) Neutrophils # (Auto) 7.1 x10^3/uL (1.8-7.7) Lymphocytes # (Auto) 1.9 x10^3/uL (1.0-4.8) Monocytes # (Auto) 0.6 x10^3/uL (0.0-1.1) Eosinophils # (Auto) 0.2 x10^3/uL (0.0-0.7) Basophils # (Auto) 0.0 x10^3/uL (0.0-0.2) Objective: Assessment: 1. Left fourth toe gangrene, status post open toe amputation on 08/15/2020. Cultures methicillin sensitive staph aureus 2. Peripheral arterial disease, status post left SFA stent placement. 3. Diabetes mellitus, poorly controlled. 4. Leukocytosis. 5. Acute kidney injury, improved. 6. History of smoking. 7. History of left foot cellulitis. Plan: Plan of Care DC cefazolin Start Invanz before discharge Total duration will be 4 to 6-week Continue local wound care as directed PICC line assessment by PICC line nurse may need replacement PICC line service supervisor and complications discussed Side effects of antibiotics discussed Probiotics Prescription in chart Social work to assist with discharge antibiotics Q. Thursday labs CBC/BUN/creatinine//CRP. 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 Wound/VAC care per vascular Discussed with CARO BELLE MD Aug 18, 2020 10:20
[2020-08-18 10:23] LABS: ALBUMIN 2.6 g/dL (3.4-5.0); ALBUMIN/GLOBULIN RATIO 0.7 (1.0-1.7); CALCIUM 8.9 mg/dL (8.5-10.1); CREATININE 0.8 mg/dL (0.6-1.0); GFR 73.2; TOTAL BILIRUBIN 0.1 mg/dL (0.2-1.0); TOTAL PROTEIN 6.2 g/dL (6.4-8.2)
[2020-08-18 11:00] VITALS: BP 151/54
[2020-08-18] MEDS ORDERED: ERTAPENEM 1 GM in IV NORMAL SALINE 50ML 50 ML IV ONE (11:00)
[2020-08-18] MEDS: MORPHINE SULFATE 4 MG/ML VIAL. IM PRN ×2 (12:50→18:18)
[2020-08-18 15:00] VITALS: BP 129/53
[2020-08-18] MEDS: metFORMIN 500 MG TABLET PO SCH (17:53)
[2020-08-18 19:00] VITALS: BP 115/71
[2020-08-18 23:33] VITALS: BP 151/58
[2020-08-19 03:50] VITALS: BP 166/63
[2020-08-19] MEDS: oxyCODONE/APAP 5/325 1 TAB TABLET PO PRN ×5 (03:56→21:35)
[2020-08-19] MEDS: MORPHINE SULFATE 4 MG/ML VIAL. IM PRN (04:35)
[2020-08-19 07:00] VITALS: BP 160/71
[2020-08-19] MEDS ORDERED: metFORMIN 500 MG TABLET PO SCH (08:00)
[2020-08-19] MEDS: CHOLECALCIFEROL (VITAMIN D3) 1,000 UNIT TABLET PO SCH (08:14)
[2020-08-19] MEDS: metFORMIN 500 MG TABLET PO SCH ×2 (08:14→16:39)
[2020-08-19] MEDS: PYRIDOXINE 50 MG TABLET. PO SCH (08:14)
[2020-08-19] MEDS: LACTOBACILLUS RHAMNOSUS GG 1 CAPSULE. PO SCH ×2 (08:14→19:58)
[2020-08-19] MEDS: CITALOPRAM 20 MG TABLET. PO SCH (08:15)
[2020-08-19] MEDS: LOSARTAN POTASSIUM 50 MG TABLET. PO SCH (08:15)
[2020-08-19] MEDS: CLOPIDOGREL BISULFATE 75 MG TABLET PO SCH (08:15)
--- NOTE | 2020-08-19 09:11 | PDOC ---
Infectious Disease Note Subjective: Subjective Patient without complaints Postop pain is under control Denies fever chills nausea vomiting diarrhea abdominal pain Vital Signs: Vital Signs Vital Signs Date Time Temp Pulse Resp B/P (MAP) Pulse Ox O2 Delivery O2 Flow Rate FiO2 08/19/20 08:15 Room Air 08/19/20 08:15 68 160/71 08/19/20 07:00 98.1 19 96 98.1 08/19/20 03:56 2.0 Physical Exam: PHYSICAL EXAM GENERAL: Alert, oriented x 3, pleasant female, lying in bed comfortably, in no acute distress. HEENT: Normocephalic, atraumatic, anicteric. NECK: Supple, no JVD. LUNGS: Clear bilaterally. No wheezing. HEART: S1, S2. ABDOMEN: Soft, nontender, nondistended. EXTREMITIES: Left foot wound dressed not taken down, mycotic toenails. NEUROLOGIC: Alert and oriented x 3, grossly nonfocal. PSYCHIATRIC: Cooperative, appropriate mood and affect. Medications: Inpatient Meds: Current Medications Medications (Trade) Dose Ordered Sig/Lesley Start Time Stop Time Status Last Admin Dose Admin Acetaminophen (Tylenol) 650 mg PRN Q4HRS PRN 08/10/20 20:00 08/11/20 19:59 DC Cefazolin Sodium 1 gm/Sodium Chloride 500 ml @ 500 mls/hr 1X ONCE 08/15/20 06:00 08/15/20 06:59 DC 08/15/20 07:58 Cefazolin Sodium/ Dextrose 50 ml @ 100 mls/hr Q8HRS 08/17/20 14:00 08/18/20 05:23 100 MLS/HR Citalopram Hydrobromide (CeleXA) 40 mg DAILY 08/11/20 14:00 08/19/20 08:15 40 MG Clonidine HCl (Catapres) 0.1 mg PRN Q6HRS PRN 08/15/20 07:30 08/16/20 23:21 0.1 MG Clopidogrel Bisulfate (Plavix) 75 mg DAILYWBKFT 08/15/20 08:15 08/19/20 08:15 75 MG Daptomycin 540 mg/ Sodium Chloride 50 ml @ 100 mls/hr Q24H 08/16/20 11:00 08/17/20 10:30 DC 08/17/20 10:01 100 MLS/HR Dexamethasone Sodium Phosphate (Decadron) 4 mg STK-MED ONCE 08/15/20 07:07 08/15/20 07:07 DC Dextrose (Dextrose 50%-Water Syringe) 12.5 gm PRN Q15MIN PRN 08/13/20 08:15 Ephedrine Sulfate (Akovaz) 50 mg STK-MED ONCE 08/15/20 07:54 08/15/20 07:54 DC Ertapenem 1 gm/ Sodium Chloride 50 ml @ 100 mls/hr 1X ONCE 08/18/20 11:00 08/18/20 11:29 DC Fentanyl Citrate (Fentanyl 2ml Vial) 100 mcg STK-MED ONCE 08/15/20 07:07 08/15/20 07:07 DC Heparin Sodium (Porcine) (Heparin Sodium) 5,000 unit 1X ONCE 08/14/20 14:15 08/14/20 14:16 DC 08/14/20 14:15 5,000 UNIT Heparin Sodium/ Sodium Chloride (HEPARIN for ARTERIAL LINE FLUSH) 1,000 unit 1X ONCE 08/14/20 14:15 08/14/20 14:16 DC 08/14/20 14:14 1,000 UNIT Hydromorphone HCl (Dilaudid) 0.5 mg PRN Q10MIN PRN 08/15/20 07:00 08/16/20 06:59 DC Insulin Human Lispro (HumaLOG VIAL for OP,RR ONLY) 0-10 units PRN Q1HR PRN 08/15/20 06:45 08/16/20 06:44 DC 08/15/20 08:29 2 UNIT Insulin Human Lispro (HumaLOG) 2 units 1X ONCE 08/13/20 22:00 08/13/20 22:01 DC 08/13/20 22:10 2 UNITS Iodixanol (Visipaque 320) 100 ml 1X ONCE 08/14/20 14:15 08/14/20 14:16 DC 08/14/20 14:14 69 ML Lactobacillus Rhamnosus (Culturelle) 1 cap BID 08/11/20 21:00 08/19/20 08:14 1 CAP Lidocaine HCl (Buffered Lidocaine 1%) 6 ml 1X ONCE 08/16/20 09:15 08/16/20 09:16 DC 08/16/20 09:22 3 ML Lidocaine HCl (Lidocaine Pf 2% Vial) 5 ml STK-MED ONCE 08/15/20 07:07 08/15/20 07:07 DC Losartan Potassium (Cozaar) 100 mg DAILY 08/11/20 14:00 08/19/20 08:15 100 MG Metformin HCl (Glucophage) 500 mg BIDWMEALS 08/18/20 17:00 08/19/20 08:14 500 MG Midazolam HCl (Versed) 2 mg STK-MED ONCE 08/15/20 07:07 08/15/20 07:07 DC Morphine Sulfate (Morphine Sulfate) 4 mg PRN Q4HRS PRN 08/18/20 12:45 08/19/20 04:35 4 MG Ondansetron HCl (Zofran) 4 mg STK-MED ONCE 08/15/20 07:07 08/15/20 07:07 DC Oxycodone/ Acetaminophen (Percocet 5/325) 1 tab PRN Q4HRS PRN 08/13/20 08:15 08/19/20 08:15 1 TAB Piperacillin Sod/ Tazobactam Sod 3.375 gm/Sodium Chloride 50 ml @ 100 mls/hr Q6HRS 08/11/20 14:00 08/17/20 10:30 DC 08/17/20 05:41 100 MLS/HR Piperacillin Sod/ Tazobactam Sod 4.5 gm/Sodium Chloride 100 ml @ 200 mls/hr 1X ONCE 08/10/20 18:45 08/10/20 19:14 DC 08/10/20 23:04 200 MLS/HR Prochlorperazine Edisylate (Compazine) 5 mg PACU PRN PRN 08/15/20 07:00 08/16/20 06:59 DC Propofol (Diprivan) 200 mg STK-MED ONCE 08/15/20 07:07 08/15/20 07:07 DC Pyridoxine HCl (Vitamin B-6) 50 mg DAILY 08/11/20 14:00 08/19/20 08:14 50 MG Ringer's Solution 1,000 ml @ 30 mls/hr Q24H 08/15/20 07:00 08/15/20 18:59 DC 08/15/20 07:15 30 MLS/HR Sevoflurane (Ultane) 30 ml STK-MED ONCE 08/15/20 07:06 08/15/20 07:07 DC Sodium Chloride 1,000 ml @ 125 mls/hr 1X ONCE 08/12/20 11:00 08/12/20 18:59 DC 08/12/20 10:41 125 MLS/HR Vancomycin HCl (Vanco Per Pharmacy) 1 each PRN DAILY PRN 08/11/20 13:00 08/16/20 10:04 DC 08/15/20 09:37 1 EACH Vancomycin HCl (Vancomycin Trough Level) 1 each 1X ONCE 08/14/20 07:30 08/14/20 07:31 DC 08/14/20 07:30 1 EACH Vancomycin HCl 1.25 gm/Sodium Chloride 250 ml @ 167 mls/hr Q12H 08/12/20 20:00 08/16/20 10:03 DC 08/15/20 20:34 167 MLS/HR Vancomycin HCl 1.75 gm/Sodium Chloride 500 ml @ 250 mls/hr Q24H 08/11/20 19:00 08/13/20 11:27 DC Vancomycin HCl 2 gm/Sodium Chloride 500 ml @ 250 mls/hr 1X ONCE 08/10/20 19:00 08/10/20 20:59 DC 08/10/20 19:07 250 MLS/HR Vitamin D (Vitamin D3) 1,000 unit DAILY 08/11/20 14:00 08/19/20 08:14 1,000 UNIT Labs: Lab Laboratory Tests Test 08/18/20 09:39 08/18/20 11:15 08/18/20 16:44 08/18/20 20:34 White Blood Count 9.8 x10^3/uL (4.0-11.0) Red Blood Count 3.41 x10^6/uL (3.50-5.40) Hemoglobin 10.4 g/dL (12.0-15.5) Hematocrit 31.2 % (36.0-47.0) Mean Corpuscular Volume 92 fL (79-100) Mean Corpuscular Hemoglobin 31 pg (25-35) Mean Corpuscular Hemoglobin Concent 33 g/dL (31-37) Red Cell Distribution Width 14.0 % (11.5-14.5) Platelet Count 348 x10^3/uL (140-400) Neutrophils (%) (Auto) 73 % (31-73) Lymphocytes (%) (Auto) 19 % (24-48) Monocytes (%) (Auto) 6 % (0-9) Eosinophils (%) (Auto) 2 % (0-3) Basophils (%) (Auto) 0 % (0-3) Neutrophils # (Auto) 7.1 x10^3/uL (1.8-7.7) Lymphocytes # (Auto) 1.9 x10^3/uL (1.0-4.8) Monocytes # (Auto) 0.6 x10^3/uL (0.0-1.1) Eosinophils # (Auto) 0.2 x10^3/uL (0.0-0.7) Basophils # (Auto) 0.0 x10^3/uL (0.0-0.2) Sodium Level 137 mmol/L (136-145) Potassium Level 4.0 mmol/L (3.5-5.1) Chloride Level 101 mmol/L (98-107) Carbon Dioxide Level 27 mmol/L (21-32) Anion Gap 9 (6-14) Blood Urea Nitrogen 22 mg/dL (7-20) Creatinine 0.8 mg/dL (0.6-1.0) Estimated GFR (Cockcroft-Gault) 73.2 BUN/Creatinine Ratio 28 (6-20) Glucose Level 170 mg/dL (70-99) Hemoglobin A1c 9.0 % (4.8-5.6) Calcium Level 8.9 mg/dL (8.5-10.1) Total Bilirubin 0.1 mg/dL (0.2-1.0) Aspartate Amino Transf (AST/SGOT) 13 U/L (15-37) Alanine Aminotransferase (ALT/SGPT) 21 U/L (14-59) Alkaline Phosphatase 77 U/L (46-116) Total Protein 6.2 g/dL (6.4-8.2) Albumin 2.6 g/dL (3.4-5.0) Albumin/Globulin Ratio 0.7 (1.0-1.7) Glucose (Fingerstick) 104 mg/dL (70-99) 206 mg/dL (70-99) 172 mg/dL (70-99) Test 08/19/20 07:07 Glucose (Fingerstick) 186 mg/dL (70-99) Objective: Assessment: 1. Left fourth toe gangrene, status post open toe amputation on 08/15/2020. Cultures methicillin sensitive staph aureus 2. Peripheral arterial disease, status post left SFA stent placement. 3. Diabetes mellitus, poorly controlled. 4. Leukocytosis. 5. Acute kidney injury, improved. 6. History of smoking. 7. History of left foot cellulitis. Plan: Plan of Care DC cefazolin Start Invanz before discharge q daily, first dose here PICC Line changed today Total duration will be 4 to 6-week Continue local wound care as directed PICC line assessment by PICC line nurse may need replacement PICC multi disciplined language analyst and complications discussed Side effects of antibiotics discussed Probiotics Prescription in chart Social work to assist with discharge antibiotics Q. Thursday labs CBC/BUN/creatinine//CRP. Fax results to [phone] Will follow-up in infusion clinic in 3 weeks, please call ID bacon skinner. Wound/VAC care per vascular Discussed with CARO BELLE MD Aug 19, 2020 09:11
[2020-08-19] MEDS: MORPHINE SULFATE 4 MG/ML VIAL. IV PRN ×4 (09:53→21:35)
--- NOTE | 2020-08-19 09:55 | RAD ---
EXAM: CHEST 1 VIEW History: PICC line placement COMPARISON: None available. TECHNIQUE: Single portable radiograph of the chest FINDINGS: The cardiac silhouette is unremarkable. The lungs are clear bilaterally. The costophrenic sulci are clear and well demarcated. Right-sided PICC line in place with the tip projecting at the SV C/RA junction. IMPRESSION: Right-sided PICC line in place. Electronically signed by: Salinas Aragon MD (08/19/2020 9:52 AM) [id number]
[2020-08-19] MEDS: INSULIN LISPRO 300 UNITS/3 ML VIAL. SQ SCH ×3 (10:02→16:38)
--- NOTE | 2020-08-19 10:14 | PDOC ---
Provider Note Date of Service: DATE: 08/19/20 TIME: 10:10 Provider Note vss, no temp, a1c high 9 so metformin resumed- she states she has not been taking metfromin last few months re depression- rest of meds same Justifications for Admission Other Justification JYOTI JONES MD Aug 19, 2020 10:14
[2020-08-19 11:00] VITALS: BP 158/66
--- NOTE | 2020-08-19 12:26 | PDOC ---
Provider Note Date of Service: DATE: 08/19/20 TIME: 12:24 Provider Note Pt doing well. Wound vac in place left 4th toe amp site Will assess tomorrow during wound vac change Justifications for Admission Other Justification CHESTER BRAND II, MD Aug 19, 2020 12:26
[2020-08-19 15:00] VITALS: BP 150/67
[2020-08-19 19:00] VITALS: BP 153/71
[2020-08-19 23:13] VITALS: BP 149/66
[2020-08-20] MEDS: MORPHINE SULFATE 4 MG/ML VIAL. IV PRN ×6 (02:19→23:13)
[2020-08-20] MEDS: oxyCODONE/APAP 5/325 1 TAB TABLET PO PRN ×4 (02:20→20:23)
[2020-08-20 03:00] VITALS: BP 158/56
[2020-08-20 07:00] VITALS: BP 177/75
[2020-08-20] MEDS: CLOPIDOGREL BISULFATE 75 MG TABLET PO SCH (07:35)
[2020-08-20] MEDS: metFORMIN 500 MG TABLET PO SCH ×2 (07:35→17:32)
--- NOTE | 2020-08-20 07:36 | PDOC ---
Infectious Disease Note Subjective: Subjective Patient without complaints Vital Signs: Vital Signs Vital Signs Date Time Temp Pulse Resp B/P (MAP) Pulse Ox O2 Delivery O2 Flow Rate FiO2 08/20/20 03:10 16 Room Air 08/20/20 03:00 97.9 74 158/56 (90) 94 97.9 Physical Exam: PHYSICAL EXAM GENERAL: Alert, oriented x 3, pleasant female, lying in bed comfortably, in no acute distress. HEENT: Normocephalic, atraumatic, anicteric. NECK: Supple, no JVD. LUNGS: Clear bilaterally. No wheezing. HEART: S1, S2. ABDOMEN: Soft, nontender, nondistended. EXTREMITIES: Left foot wound with wound VAC dressed not taken down, mycotic toenails. NEUROLOGIC: Alert and oriented x 3, grossly nonfocal. PSYCHIATRIC: Cooperative, appropriate mood and affect. Right upper extremity PICC line clean Medications: Inpatient Meds: Current Medications Medications (Trade) Dose Ordered Sig/Lesley Start Time Stop Time Status Last Admin Dose Admin Acetaminophen (Tylenol) 650 mg PRN Q4HRS PRN 08/10/20 20:00 08/11/20 19:59 DC Cefazolin Sodium 1 gm/Sodium Chloride 500 ml @ 500 mls/hr 1X ONCE 08/15/20 06:00 08/15/20 06:59 DC 08/15/20 07:58 Cefazolin Sodium/ Dextrose 50 ml @ 100 mls/hr Q8HRS 08/17/20 14:00 08/19/20 11:37 DC 08/18/20 05:23 100 MLS/HR Citalopram Hydrobromide (CeleXA) 40 mg DAILY 08/11/20 14:00 08/19/20 08:15 40 MG Clonidine HCl (Catapres) 0.1 mg PRN Q6HRS PRN 08/15/20 07:30 08/16/20 23:21 0.1 MG Clopidogrel Bisulfate (Plavix) 75 mg DAILYWBKFT 08/15/20 08:15 08/19/20 08:15 75 MG Daptomycin 540 mg/ Sodium Chloride 50 ml @ 100 mls/hr Q24H 08/16/20 11:00 08/17/20 10:30 DC 08/17/20 10:01 100 MLS/HR Dexamethasone Sodium Phosphate (Decadron) 4 mg STK-MED ONCE 08/15/20 07:07 08/15/20 07:07 DC Dextrose (Dextrose 50%-Water Syringe) 12.5 gm PRN Q15MIN PRN 08/13/20 08:15 Ephedrine Sulfate (Akovaz) 50 mg STK-MED ONCE 08/15/20 07:54 08/15/20 07:54 DC Ertapenem 1 gm/ Sodium Chloride 50 ml @ 100 mls/hr 1X ONCE 08/18/20 11:00 08/18/20 11:29 DC 08/19/20 09:53 100 MLS/HR Fentanyl Citrate (Fentanyl 2ml Vial) 100 mcg STK-MED ONCE 08/15/20 07:07 08/15/20 07:07 DC Heparin Sodium (Porcine) (Heparin Sodium) 5,000 unit 1X ONCE 08/14/20 14:15 08/14/20 14:16 DC 08/14/20 14:15 5,000 UNIT Heparin Sodium/ Sodium Chloride (HEPARIN for ARTERIAL LINE FLUSH) 1,000 unit 1X ONCE 08/14/20 14:15 08/14/20 14:16 DC 08/14/20 14:14 1,000 UNIT Hydromorphone HCl (Dilaudid) 0.5 mg PRN Q10MIN PRN 08/15/20 07:00 08/16/20 06:59 DC Insulin Human Lispro (HumaLOG VIAL for OP,RR ONLY) 0-10 units PRN Q1HR PRN 08/15/20 06:45 08/16/20 06:44 DC 08/15/20 08:29 2 UNIT Insulin Human Lispro (HumaLOG) 2 units 1X ONCE 08/13/20 22:00 08/13/20 22:01 DC 08/13/20 22:10 2 UNITS Iodixanol (Visipaque 320) 100 ml 1X ONCE 08/14/20 14:15 08/14/20 14:16 DC 08/14/20 14:14 69 ML Lactobacillus Rhamnosus (Culturelle) 1 cap BID 08/11/20 21:00 08/19/20 19:58 1 CAP Lidocaine HCl (Buffered Lidocaine 1%) 6 ml 1X ONCE 08/16/20 09:15 08/16/20 09:16 DC 08/16/20 09:22 3 ML Lidocaine HCl (Lidocaine Pf 2% Vial) 5 ml STK-MED ONCE 08/15/20 07:07 08/15/20 07:07 DC Losartan Potassium (Cozaar) 100 mg DAILY 08/11/20 14:00 08/19/20 08:15 100 MG Metformin HCl (Glucophage) 500 mg BIDWMEALS 08/18/20 17:00 08/19/20 16:39 500 MG Midazolam HCl (Versed) 2 mg STK-MED ONCE 08/15/20 07:07 08/15/20 07:07 DC Morphine Sulfate (Morphine Sulfate) 4 mg PRN Q4HRS PRN 08/18/20 12:45 08/19/20 04:35 4 MG Ondansetron HCl (Zofran) 4 mg STK-MED ONCE 08/15/20 07:07 08/15/20 07:07 DC Oxycodone/ Acetaminophen (Percocet 5/325) 1 tab PRN Q4HRS PRN 08/13/20 08:15 08/20/20 02:20 1 TAB Piperacillin Sod/ Tazobactam Sod 3.375 gm/Sodium Chloride 50 ml @ 100 mls/hr Q6HRS 08/11/20 14:00 08/17/20 10:30 DC 08/17/20 05:41 100 MLS/HR Piperacillin Sod/ Tazobactam Sod 4.5 gm/Sodium Chloride 100 ml @ 200 mls/hr 1X ONCE 08/10/20 18:45 08/10/20 19:14 DC 08/10/20 23:04 200 MLS/HR Prochlorperazine Edisylate (Compazine) 5 mg PACU PRN PRN 08/15/20 07:00 08/16/20 06:59 DC Propofol (Diprivan) 200 mg STK-MED ONCE 08/15/20 07:07 08/15/20 07:07 DC Pyridoxine HCl (Vitamin B-6) 50 mg DAILY 08/11/20 14:00 08/19/20 08:14 50 MG Ringer's Solution 1,000 ml @ 30 mls/hr Q24H 08/15/20 07:00 08/15/20 18:59 DC 08/15/20 07:15 30 MLS/HR Sevoflurane (Ultane) 30 ml STK-MED ONCE 08/15/20 07:06 08/15/20 07:07 DC Sodium Chloride 1,000 ml @ 125 mls/hr 1X ONCE 08/12/20 11:00 08/12/20 18:59 DC 08/12/20 10:41 125 MLS/HR Vancomycin HCl (Vanco Per Pharmacy) 1 each PRN DAILY PRN 08/11/20 13:00 08/16/20 10:04 DC 08/15/20 09:37 1 EACH Vancomycin HCl (Vancomycin Trough Level) 1 each 1X ONCE 08/14/20 07:30 08/14/20 07:31 DC 08/14/20 07:30 1 EACH Vancomycin HCl 1.25 gm/Sodium Chloride 250 ml @ 167 mls/hr Q12H 08/12/20 20:00 08/16/20 10:03 DC 08/15/20 20:34 167 MLS/HR Vancomycin HCl 1.75 gm/Sodium Chloride 500 ml @ 250 mls/hr Q24H 08/11/20 19:00 08/13/20 11:27 DC Vancomycin HCl 2 gm/Sodium Chloride 500 ml @ 250 mls/hr 1X ONCE 08/10/20 19:00 08/10/20 20:59 DC 08/10/20 19:07 250 MLS/HR Vitamin D (Vitamin D3) 1,000 unit DAILY 08/11/20 14:00 08/19/20 08:14 1,000 UNIT Labs: Lab Laboratory Tests Test 08/19/20 11:13 08/19/20 16:24 08/19/20 19:57 Glucose (Fingerstick) 125 mg/dL (70-99) 142 mg/dL (70-99) 146 mg/dL (70-99) Micro RUN DATE: 08/17/20 [facility] LAB *LIVE* PAGE 1 RUN TIME: 916 Specimen Inquiry PATIENT: ELIOT BANEGAS ACCT: [id number] LOC: [address] [place] [address] U: [id number] AGE/SX: 60/F ROOM: [facility] RE08/10/[address]: OLGA SERRA MD : 1960 BED: 1 DIS: STATUS: ADM IN TLOC: SPEC #: [id number] JAMILAH: 08/15/20 STATUS: RES REQ #: [id number] RECD: 08/15/[address]: OLGA SERRA MD SOURCE: ABSCESS ENTR: 08/15/[address]: RUIZ CUEVAS MD SPDESC: ORDERED: ARMANDO/GILLIAN/ROLY COMMENTS: LEFT 4TH TOE WOUND Procedure Result GRAM STAIN Final Final GRAM POSITIVE COCCI:MODERATE SQUAMOUS EPI CELL:RARE PMN (WBCs):FEW Unless otherwise specified, Testing Performed by: [address] [address] For Inquires, the Physician may contact the Microbiology department at [phone] ANAEROBIC-AEROBIC CULTURE Preliminary Preliminary MODERATE [STAPHYLOCOCCUS AUREUS] on 08/16/20 at 1144 STAPHYLOCOCCUS AUREUS ANTIMICROBIAL SUSCEPTIBILITY Preliminary Comment POS CHLOE TYPE 38 STAPHYLOCOCCUS AUREUS ANTIBIOTIC RESULT INTERPRETATION AZITHROMYCIN >4 R CLINDAMYCIN 0.5 R* CEFOXITIN SCREEN <=4 NEG CIPROFLOXACIN <=1 S CEFTAROLINE <=0.5 S DAPTOMYCIN <=0.5 S ERYTHROMYCIN >4 R GENTAMICIN <=4 S INDUCIBLE CLINDAMYCIN >4/0.5 POS LINEZOLID 2 S LEVOFLOXACIN <=1 S OXACILLIN <=0.25 S PENICILLIN >2 Vaughn RIFAMPIN <=1 S TRIMETHOPRIM/SULFAMETHOXAZOLE <=0.5/9.5 S TETRACYCLINE <=4 S VANCOMYCIN 1 S RUN DATE: 08/17/20 [facility] LAB *LIVE* PAGE 2 RUN TIME: 916 Specimen Inquiry SPEC: [id number] PATIENT: ELIOT BANEGAS [id number] (Continued) Procedure Result CONTINUED ON NEXT PAGE RUN DATE: 08/17/20 [facility] LAB *LIVE* PAGE 3 RUN TIME: 0917 Specimen Inquiry SPEC: [id number] PATIENT: ELIOT BANEGAS [id number] (Continued) Procedure Result ---- -------- ANTIMICROBIAL SUSCEPTIBILITY Preliminary (continued) Unless otherwise specified, Testing Performed by: [address] [address] For Inquires, the Physician may contact the Microbiology department at [phone] Objective: Assessment: 1. Left fourth toe gangrene, status post open toe amputation on 08/15/2020. Cultures methicillin sensitive staph aureus 2. Peripheral arterial disease, status post left SFA stent placement. 3. Diabetes mellitus, poorly controlled. 4. Leukocytosis. 5. Acute kidney injury, improved. 6. History of smoking. 7. History of left foot cellulitis. Plan: Plan of Care Continue Invanz , dose today before discharge PICC Line changed August 19, 2020 Total duration of antibiotics will be 4 to 6-week Continue local wound /vac care as directed Offload PICC line assessment by PICC line nurse may need replacement PICC pipeline superintendent and complications discussed Side effects of antibiotics discussed Probiotics Prescription in chart Social work to assist with discharge antibiotics Q. Thursday labs CBC/BUN/creatinine//CRP. Fax results to [phone] Will follow-up in infusion clinic in 3-4 weeks, please call ID portrait consultant. Discussed with RN CARO OLIVER MD Aug 20, 2020 07:36
[2020-08-20] MEDS ORDERED: ERTAPENEM 1GM IVPB(GENERIC) NS 50 ML IV ONE (08:00)
[2020-08-20] MEDS: INSULIN LISPRO 300 UNITS/3 ML VIAL. SQ SCH ×3 (08:00→17:00)
--- NOTE | 2020-08-20 09:38 | NUR ---
SW following. Discussed with RN, pt from home with mother. SW discussed with Dr. Allen - pt now only needing IV Invanz at discharge. SW notified outpatient. Pt should discharge today. Awaiting call back from outpatient to confirm time. SW will continue to follow.
[2020-08-20] MEDS: CITALOPRAM 20 MG TABLET. PO SCH (10:24)
[2020-08-20] MEDS: LOSARTAN POTASSIUM 50 MG TABLET. PO SCH (10:25)
[2020-08-20] MEDS: PYRIDOXINE 50 MG TABLET. PO SCH (10:25)
[2020-08-20] MEDS: CHOLECALCIFEROL (VITAMIN D3) 1,000 UNIT TABLET PO SCH (10:25)
[2020-08-20] MEDS: LACTOBACILLUS RHAMNOSUS GG 1 CAPSULE. PO SCH ×2 (10:25→20:23)
[2020-08-20 11:15] VITALS: BP 162/54
--- NOTE | 2020-08-20 11:40 | PDOC ---
Provider Note Date of Service: DATE: 08/20/20 TIME: 11:37 Provider Note Provider Note Vascular S: Pt doing well post operatively, no complaints. Rooke boot on right foot. O: VSS, afebrile Awake, alert, in no apparent distress Left 4th toe amp site clean, minimal bloody ooze from proximal wound corner, skin edges clean. Small blister prox to wound. Wound bed pink, no ischemia. Bone exposed with minimal oozing. No surrounding erythema. Foot warm with excellent cap refill. A/P PAD s/p L SFA stent placement Left 4th toe gangrene - s/p open toe amp - ontinue wound vac therapy - Left forefoot offloading - can use half shoe for transfers. Pt may prefer heel touch. - Iv abx per ID - Needs to continue plavix - ok for discharge from our standpoint. Will follow up with us as scheduled - discussed with NABEEL Justicifation of Admission Dx: Justifications for Admission: Justification of Admission Dx: Yes CHEIKH OVALLE Aug 20, 2020 11:40
[2020-08-20 14:42] VITALS: BP 150/78
--- NOTE | 2020-08-20 14:50 | NUR ---
Wound Care Assessed pt for wound vac dressing change, for pt to d/c home. Vac dressing had previously been removed by Vascular this morning. Upon assessment, wound bed is beefy red and clean, plantar edge macerated and peeling, and plantar forefoot/midfoot/arch areas swollen, warm and dark red. Per ANGIE Kaur, who saw pt on for last vac change, stated these are new findings. With pt's permission, foot photographed and photos sent to AMY Chawla with Vascular, and Dr. Chase Allen with ID. Called and spoke with both practitioners, both agreed pt can discharge today and area will be watched closely, as pt will return to Outpt Dept daily for IV Abx. Reddened area outlined with black santamaria.
--- NOTE | 2020-08-20 15:56 | NUR ---
Wound/Ostomy Care Wound Type/Assessment: Pt seen per wound care for wound vac placement to left 4th toe amputation site done by vascular. Dressing removed and wound cleansed, assessed, measured, and pictured. There is bone and tendon exposed. periwound is reddened and edematous. Vascular and ID notified of findings. Orders received to continue with vac change and discharge and will monitor in outpatient with IV infusions. Treatment Recommendations/Plan: Discharge with [facility] home vac.Skin prepped for wound vac, an ostomy ring placed to margie-wound, one piece of mejia foam placed to wound bed, vac tracked up to left medial lower leg. A good seal maintained at 125mmHg continuously. Pt will follow up with us in outpatient department. Education provided: Pt educated on wound vac therapy, alarms, dressing changes, trouble shooting, etc. Pt v/u. receipt of home vac signed Offloading surface/device: Pt has Darco shoe and encouraged to use walker and minimize pressure to left foot. A Rooke boot also ordered for this patient. Recommended Referrals/Tests: Pt will follow up in the outpatient department as directed. Discharge Recommendations for dressings: Same as above. Anticipated discharge for today. Bed lowered and call light in reach.
[2020-08-20 19:00] VITALS: BP 169/58
[2020-08-20 23:00] VITALS: BP 138/57
[2020-08-21 03:00] VITALS: BP 178/76
[2020-08-21] MEDS: oxyCODONE/APAP 5/325 1 TAB TABLET PO PRN ×2 (03:35→08:03)
[2020-08-21] MEDS: MORPHINE SULFATE 4 MG/ML VIAL. IV PRN ×2 (03:35→10:23)
[2020-08-21 07:00] VITALS: BP 185/80
[2020-08-21] MEDS: INSULIN LISPRO 300 UNITS/3 ML VIAL. SQ SCH ×2 (08:00→11:18)
[2020-08-21] MEDS ORDERED: CLOP75TA PO (08:01)
[2020-08-21] MEDS: CHOLECALCIFEROL (VITAMIN D3) 1,000 UNIT TABLET PO SCH (08:03)
[2020-08-21] MEDS: LACTOBACILLUS RHAMNOSUS GG 1 CAPSULE. PO SCH (08:03)
[2020-08-21] MEDS: LOSARTAN POTASSIUM 50 MG TABLET. PO SCH (08:04)
[2020-08-21] MEDS: metFORMIN 500 MG TABLET PO SCH (08:04)
[2020-08-21] MEDS: PYRIDOXINE 50 MG TABLET. PO SCH (08:04)
[2020-08-21] MEDS: CLOPIDOGREL BISULFATE 75 MG TABLET PO SCH (08:04)
[2020-08-21] MEDS: CITALOPRAM 20 MG TABLET. PO SCH (08:04)
--- NOTE | 2020-08-21 09:26 | NUR ---
SW following. Discussed with RN, discharge order for home with self care today. Pt will follow at outpatient for daily infusions. Time arranged between outpatient and patient. No further SW needs.
[2020-08-21 11:00] VITALS: BP 169/64
--- NOTE | 2020-08-21 11:24 | PDOC ---
Infectious Disease Note Subjective: Subjective Patient without complaints Vital Signs: Vital Signs Vital Signs Date Time Temp Pulse Resp B/P (MAP) Pulse Ox O2 Delivery O2 Flow Rate FiO2 08/21/20 11:00 97.9 65 18 169/64 (99) 95 Room Air 97.9 08/20/20 07:40 2.0 Physical Exam: PHYSICAL EXAM GENERAL: Alert, oriented x 3, pleasant female, lying in bed comfortably, in no acute distress. HEENT: Normocephalic, atraumatic, anicteric. NECK: Supple, no JVD. LUNGS: Clear bilaterally. No wheezing. HEART: S1, S2. ABDOMEN: Soft, nontender, nondistended. EXTREMITIES: Left foot wound with wound VAC dressed not taken down, mycotic toenails. NEUROLOGIC: Alert and oriented x 3, grossly nonfocal. PSYCHIATRIC: Cooperative, appropriate mood and affect. Right upper extremity PICC line clean Medications: Inpatient Meds: Current Medications Medications (Trade) Dose Ordered Sig/Lesley Start Time Stop Time Status Last Admin Dose Admin Acetaminophen (Tylenol) 650 mg PRN Q4HRS PRN 08/10/20 20:00 08/11/20 19:59 DC Cefazolin Sodium 1 gm/Sodium Chloride 500 ml @ 500 mls/hr 1X ONCE 08/15/20 06:00 08/15/20 06:59 DC 08/15/20 07:58 Cefazolin Sodium/ Dextrose 50 ml @ 100 mls/hr Q8HRS 08/17/20 14:00 08/19/20 11:37 DC 08/18/20 05:23 100 MLS/HR Citalopram Hydrobromide (CeleXA) 40 mg DAILY 08/11/20 14:00 08/21/20 08:04 40 MG Clonidine HCl (Catapres) 0.1 mg PRN Q6HRS PRN 08/15/20 07:30 08/16/20 23:21 0.1 MG Clopidogrel Bisulfate (Plavix) 75 mg DAILYWBKFT 08/15/20 08:15 08/21/20 08:04 75 MG Daptomycin 540 mg/ Sodium Chloride 50 ml @ 100 mls/hr Q24H 08/16/20 11:00 08/17/20 10:30 DC 08/17/20 10:01 100 MLS/HR Dexamethasone Sodium Phosphate (Decadron) 4 mg STK-MED ONCE 08/15/20 07:07 08/15/20 07:07 DC Dextrose (Dextrose 50%-Water Syringe) 12.5 gm PRN Q15MIN PRN 08/13/20 08:15 Ephedrine Sulfate (Akovaz) 50 mg STK-MED ONCE 08/15/20 07:54 08/15/20 07:54 DC Ertapenem 50 ml @ 100 mls/hr 1X ONCE 08/20/20 08:00 08/20/20 08:29 DC 08/20/20 10:29 100 MLS/HR Ertapenem 1 gm/ Sodium Chloride 50 ml @ 100 mls/hr 1X ONCE 08/18/20 11:00 08/18/20 11:29 DC 08/19/20 09:53 100 MLS/HR Fentanyl Citrate (Fentanyl 2ml Vial) 100 mcg STK-MED ONCE 08/15/20 07:07 08/15/20 07:07 DC Heparin Sodium (Porcine) (Heparin Sodium) 5,000 unit 1X ONCE 08/14/20 14:15 08/14/20 14:16 DC 08/14/20 14:15 5,000 UNIT Heparin Sodium/ Sodium Chloride (HEPARIN for ARTERIAL LINE FLUSH) 1,000 unit 1X ONCE 08/14/20 14:15 08/14/20 14:16 DC 08/14/20 14:14 1,000 UNIT Hydromorphone HCl (Dilaudid) 0.5 mg PRN Q10MIN PRN 08/15/20 07:00 08/16/20 06:59 DC Insulin Human Lispro (HumaLOG VIAL for OP,RR ONLY) 0-10 units PRN Q1HR PRN 08/15/20 06:45 08/16/20 06:44 DC 08/15/20 08:29 2 UNIT Insulin Human Lispro (HumaLOG) 2 units 1X ONCE 08/13/20 22:00 08/13/20 22:01 DC 08/13/20 22:10 2 UNITS Iodixanol (Visipaque 320) 100 ml 1X ONCE 08/14/20 14:15 08/14/20 14:16 DC 08/14/20 14:14 69 ML Lactobacillus Rhamnosus (Culturelle) 1 cap BID 08/11/20 21:00 12/29/20 08:03 1 CAP Lidocaine HCl (Buffered Lidocaine 1%) 6 ml 1X ONCE 08/16/20 09:15 08/16/20 09:16 DC 08/16/20 09:22 3 ML Lidocaine HCl (Lidocaine Pf 2% Vial) 5 ml STK-MED ONCE 08/15/20 07:07 08/15/20 07:07 DC Losartan Potassium (Cozaar) 100 mg DAILY 08/11/20 14:00 08/21/20 08:04 100 MG Metformin HCl (Glucophage) 500 mg BIDWMEALS 08/18/20 17:00 08/21/20 08:04 500 MG Midazolam HCl (Versed) 2 mg STK-MED ONCE 08/15/20 07:07 08/15/20 07:07 DC Morphine Sulfate (Morphine Sulfate) 4 mg PRN Q4HRS PRN 08/18/20 12:45 08/19/20 04:35 4 MG Ondansetron HCl (Zofran) 4 mg STK-MED ONCE 08/15/20 07:07 08/15/20 07:07 DC Oxycodone/ Acetaminophen (Percocet 5/325) 1 tab PRN Q4HRS PRN 08/13/20 08:15 08/21/20 08:03 1 TAB Piperacillin Sod/ Tazobactam Sod 3.375 gm/Sodium Chloride 50 ml @ 100 mls/hr Q6HRS 08/11/20 14:00 08/17/20 10:30 DC 08/17/20 05:41 100 MLS/HR Piperacillin Sod/ Tazobactam Sod 4.5 gm/Sodium Chloride 100 ml @ 200 mls/hr 1X ONCE 08/10/20 18:45 08/10/20 19:14 DC 08/10/20 23:04 200 MLS/HR Prochlorperazine Edisylate (Compazine) 5 mg PACU PRN PRN 08/15/20 07:00 08/16/20 06:59 DC Propofol (Diprivan) 200 mg STK-MED ONCE 08/15/20 07:07 08/15/20 07:07 DC Pyridoxine HCl (Vitamin B-6) 50 mg DAILY 08/11/20 14:00 08/21/20 08:04 50 MG Ringer's Solution 1,000 ml @ 30 mls/hr Q24H 08/15/20 07:00 08/15/20 18:59 DC 08/15/20 07:15 30 MLS/HR Sevoflurane (Ultane) 30 ml STK-MED ONCE 08/15/20 07:06 08/15/20 07:07 DC Sodium Chloride 1,000 ml @ 125 mls/hr 1X ONCE 08/12/20 11:00 08/12/20 18:59 DC 08/12/20 10:41 125 MLS/HR Vancomycin HCl (Vanco Per Pharmacy) 1 each PRN DAILY PRN 08/11/20 13:00 08/16/20 10:04 DC 08/15/20 09:37 1 EACH Vancomycin HCl (Vancomycin Trough Level) 1 each 1X ONCE 08/14/20 07:30 08/14/20 07:31 DC 08/14/20 07:30 1 EACH Vancomycin HCl 1.25 gm/Sodium Chloride 250 ml @ 167 mls/hr Q12H 08/12/20 20:00 08/16/20 10:03 DC 08/15/20 20:34 167 MLS/HR Vancomycin HCl 1.75 gm/Sodium Chloride 500 ml @ 250 mls/hr Q24H 08/11/20 19:00 08/13/20 11:27 DC Vancomycin HCl 2 gm/Sodium Chloride 500 ml @ 250 mls/hr 1X ONCE 08/10/20 19:00 08/10/20 20:59 DC 08/10/20 19:07 250 MLS/HR Vitamin D (Vitamin D3) 1,000 unit DAILY 08/11/20 14:00 08/21/20 08:03 1,000 UNIT Labs: Lab Laboratory Tests Test 08/20/20 16:42 08/20/20 20:52 08/21/20 07:14 08/21/20 10:27 Glucose (Fingerstick) 122 mg/dL (70-99) 144 mg/dL (70-99) 166 mg/dL (70-99) 164 mg/dL (70-99) Micro RUN DATE: 08/17/20 [facility] LAB *LIVE* PAGE 1 RUN TIME: 916 Specimen Inquiry PATIENT: ELIOT BANEGAS ACCT: [id number] LOC: [address] [place] [address] U: [id number] AGE/SX: 60/F ROOM: [facility] RE08/10/[address]: OLGA SERRA MD : 1960 BED: 1 DIS: STATUS: ADM IN TLOC: SPEC #: [id number] JAMILAH: 08/15/20 STATUS: RES REQ #: [id number] RECD: 08/15/[address]: OLGA SERRA MD SOURCE: ABSCESS ENTR: 08/15/[address]: RUIZ CUEVAS MD SPDESC: ORDERED: ARMANDO/GILLIAN/ROLY COMMENTS: LEFT 4TH TOE WOUND Procedure Result GRAM STAIN Final Final GRAM POSITIVE COCCI:MODERATE SQUAMOUS EPI CELL:RARE PMN (WBCs):FEW Unless otherwise specified, Testing Performed by: [facility] [address] [place] [address] For Inquires, the Physician may contact the Microbiology department at [phone] ANAEROBIC-AEROBIC CULTURE Preliminary Preliminary MODERATE [STAPHYLOCOCCUS AUREUS] on 08/16/20 at 1144 STAPHYLOCOCCUS AUREUS ANTIMICROBIAL SUSCEPTIBILITY Preliminary Comment POS CHLOE TYPE 38 STAPHYLOCOCCUS AUREUS ANTIBIOTIC RESULT INTERPRETATION AZITHROMYCIN >4 R CLINDAMYCIN 0.5 R* CEFOXITIN SCREEN <=4 NEG CIPROFLOXACIN <=1 S CEFTAROLINE <=0.5 S DAPTOMYCIN <=0.5 S ERYTHROMYCIN >4 R GENTAMICIN <=4 S INDUCIBLE CLINDAMYCIN >4/0.5 POS LINEZOLID 2 S LEVOFLOXACIN <=1 S OXACILLIN <=0.25 S PENICILLIN >2 Vaughn RIFAMPIN <=1 S TRIMETHOPRIM/SULFAMETHOXAZOLE <=0.5/9.5 S TETRACYCLINE <=4 S VANCOMYCIN 1 S RUN DATE: 08/17/20 [facility] LAB *LIVE* PAGE 2 RUN TIME: 916 Specimen Inquiry SPEC: [id number] PATIENT: ELIOT BANEGAS [id number] (Continued) --- --------- Procedure Result CONTINUED ON NEXT PAGE RUN DATE: 08/17/20 [facility] LAB *LIVE* PAGE 3 RUN TIME: 09 Specimen Inquiry SPEC: [id number] PATIENT: ELIOT BANEGAS [id number] (Continued) Procedure Result ANTIMICROBIAL SUSCEPTIBILITY Preliminary (continued) Unless otherwise specified, Testing Performed by: [address] [address] For Inquires, the Physician may contact the Microbiology department at [phone] Objective: Assessment: 1. Left fourth toe gangrene, status post open toe amputation on 08/15/2020. Cultures methicillin sensitive staph aureus 2. Peripheral arterial disease, status post left SFA stent placement. 3. Diabetes mellitus, poorly controlled. 4. Leukocytosis. 5. Acute kidney injury, improved. 6. History of smoking. 7. History of left foot cellulitis. Plan: Plan of Care Continue Invanz , dose today before discharge monitor redness on bottom of foot, seen by vascular team ,they will follow no further surgical intervention planned PICC Line changed August 19, 2020 Total duration of antibiotics will be 4 to 6-week Continue local wound /vac care as directed Offload PICC line assessment by PICC line nurse may need replacement PICC plastic block boiler reliner and complications discussed Side effects of antibiotics discussed Probiotics Prescription in chart Social work to assist with discharge antibiotics Q. Thursday labs CBC/BUN/creatinine//CRP. Fax results to [phone] Will follow-up in infusion clinic in 3-4 weeks, please call ID business continuity manager. Discussed with CARO BELLE MD Aug 21, 2020 11:24
--- NOTE | 2020-08-21 12:00 | NUR ---
Spoke with pharmacy and Josesito stated pt had invance yesterday while inpatient so will therefore have to be dc'd and then go to outpatient for infusion d/t ins. can only have 1 inpatient. Discharge instructions and belongings reviewed with pt, verbalized understanding. Will be escorted down to outpatient for infusion.
--- NOTE | 2020-08-22 14:54 | RAD ---
08/14/2020 2:20 PM Procedure: 1. Abdominal angiogram 2. Pelvic angiogram 3. Left lower extremity angiogram including angiograms of first, second, and third order vessels 4. Placement of self expanding stent, mid left SFA for near occlusion Clinical Indication: Ischemic toe, left foot. Left foot hyperemia. History of diabetes. Significant smoking history. Discussion: The procedure was explained in its entirety to the patient or the patients designated desk representative by a member of the treatment team, including a discussion of the risks, benefits and commonly accepted alternatives to the procedure, as well as the expected consequences of no therapy whatsoever. Discussion of the risks included, but was not limited to, those that are most frequent and those that are rare but possibly severe or life-threatening, as well as the possibility of unforeseen complications. All elements of maximal sterile barrier technique including the use of a cap, mask, sterile gown, sterile gloves, large sterile sheet, appropriate hand hygiene, and 2% chlorhexidine for cutaneous antisepsis (or acceptable alternative antiseptic per current guidelines) were followed for this procedure. The right groin was prepped and draped using sterile barrier technique as described. 1% lidocaine was administered for local anesthesia. Using a combination of ultrasound and fluoroscopic guidance the right common femoral artery was targeted. Ultrasound evaluation demonstrates the right common femoral artery be patent. The artery was accessed under direct ultrasound guidance using micropuncture technique. A 5 Yi vascular sheath was placed. An Omni flush catheter was advanced into the abdominal aorta. Abdominal aortogram was obtained. This demonstrates mild fusiform sclerotic vascular disease without aneurysm or hemodynamically significant narrowing. The catheter was repositioned into the inferior bowel aorta and pelvic angiography was performed again demonstrating diffuse atherosclerotic vascular disease without significant stenosis of the common or external iliac arteries. Visualized internal iliac arteries. Remain patent. Catheter was then repositioned just above the common femoral artery and left common femoral angiography was performed demonstrating a patent common femoral artery, proximal profunda artery, and proximal left SFA. The catheter was then repositioned into the superficial femoral artery and left lower extremity angiography continued. There is a mild nonflow limiting stenosis of the proximal left SFA there is a subsequent high-grade stenosis/near occlusion in the mid to distal left SFA just above the adductor canal. The more distal SFA is irregular but patent. The popliteal artery is irregular but patent. There is single vessel runoff via the peroneal artery. The origin of the anterior tibial artery posterior tibial artery is not identified. The peroneal artery continues patency to the ankle where collateral vessels supply portions of the lateral plantar artery and the distal most anterior tibial artery. This vessels and occluded with collaterals supplying a small caliber dorsalis pedis. Over sheath was placed. The patient was heparinized. The near occlusion of the SFA was traversed with a guidewire, with subsequent placement of a 6 mm self expanding stent. 6 post dilated to 4 mm with a step-off being seen on post dilatation angiography in the distal aspect of the stent which was treated with extension of the stent the second 6 mm self expanding stent which resulted in significantly improved morphology and flow. Distal angiograms demonstrated much more rapid filling of the distal vessels without evidence of complication. Angiography of the access site demonstrated a common femoral puncture amenable to closure device use. The minx closure device was deployed with achievement of hemostasis. Sterile dressings were applied. The patient tolerated the procedure without immediate complication. Total fluoroscopy time: 12.2 min Dose area product: 226 Gycm2 The procedures performed under conscious sedation including continuous cardiopulmonary monitoring via dedicated sedation nurse. [id number] sedation time: 69 minutes Impression: 1. Near occlusion of the mid to distal SFA treated with placement of self-expanding stent placement. 2. Single vessel runoff to the foot via the peroneal artery as described.
== END 2020-08-21 12:06 | disposition home or self-care (01) | DRG 253 ==
LOC: ER 15:25 → ED HOLD 19:46 → 4 NORTH 22:05
PROVIDERS: ADMIT Family Medicine; ATTEND Family Medicine
PROC: 047L3DZ Dilation of Left Femoral Artery with Intraluminal Device, Percutaneous Approach (ICD-10-PCS; principal; 2020-08-14)
PROC: B4101ZZ Fluoroscopy of Abdominal Aorta using Low Osmolar Contrast (ICD-10-PCS; 2020-08-14)
PROC: B41C1ZZ Fluoroscopy of Pelvic Arteries using Low Osmolar Contrast (ICD-10-PCS; 2020-08-14)
PROC: B41G1ZZ Fluoroscopy of Left Lower Extremity Arteries using Low Osmolar Contrast (ICD-10-PCS; 2020-08-14)
PROC: 0Y6W0Z0 Detachment at Left 4th Toe, Complete, Open Approach (ICD-10-PCS; 2020-08-15)
PROC: 02HV33Z Insertion of Infusion Device into Superior Vena Cava, Percutaneous Approach (ICD-10-PCS; 2020-08-16)
PROC: B548ZZA Ultrasonography of Superior Vena Cava, Guidance (ICD-10-PCS; 2020-08-16)
PROC: B5181ZA Fluoroscopy of Superior Vena Cava using Low Osmolar Contrast, Guidance (ICD-10-PCS; 2020-08-16)
DX: E11.52 Type 2 diabetes mellitus with diabetic peripheral angiopathy with gangrene (principal); N17.9 Acute kidney failure, unspecified; L03.116 Cellulitis of left lower limb; I75.022 Atheroembolism of left lower extremity; E11.42 Type 2 diabetes mellitus with diabetic polyneuropathy; E66.9 Obesity, unspecified; E78.5 Hyperlipidemia, unspecified; F17.200 Nicotine dependence, unspecified, uncomplicated; I77.1 Stricture of artery; I10 Essential (primary) hypertension; Z79.02 Long term (current) use of antithrombotics/antiplatelets; Z79.4 Long term (current) use of insulin; Z68.32 Body mass index [BMI] 32.0-32.9, adult; Z90.710 Acquired absence of both cervix and uterus; Z98.62 Peripheral vascular angioplasty status; Z20.828 Contact with and (suspected) exposure to other viral communicable diseases
CPT/HCPCS: 36415; 36569; 36573; 37226; 71045; 75625; 75710; 76937; 77001; 80048; 80053; 80202; 82550; 82565; 82962; 83036; 85025; 85610; 85730; 87071; 87075; 87077; 87186; 87426; 93925; 93970; 96365; 96375; 99152; 99153; 99285; C1725; C1751; C1757; C1760; C1769; C1892; C1894; G0269; J0690; J0878; J1100; J1170; J1335; J1644; J1815; J2250; J2270; J2405; J2543; J2704; J3010; J3370; J3490; J7030; J7040; J7050; J7120; Q9967; U0003; A4461; G0378

== ENCOUNTER → 2020-10-23 | Outpatient (CLI) | payer MEDICARE, OTHER ==
[2020-09-25 10:01] VITALS: BP 125/67
[~2020-10-23] MED LIST changes: +CARI350T14 PO; +CITA40TA12 PO; +CLOP75TA PO; +GADOTERATE 5 MMOL/10ML VIAL. IVP ONE; +LOSA100T14 PO; +METF10007 PO; +PYRI50CA PO; +VITA1TAB31 PO
--- NOTE | 2020-10-23 16:14 | RAD ---
EXAMINATION: MRI LEFT FOOT WITH AND WITHOUT IV CONTRAST CLINICAL HISTORY: Nonhealing diabetic ulcer lateral left plantar forefoot TECHNIQUE: Multiplanar multisequential images obtained through the forefoot with and without intraven ous contrast. COMPARISON: Left foot radiographs 10/16/2020 FINDINGS: Fourth toe amputation at the MCP joint. Ill-defined ulcer suggested along the lateral/plantar aspect of the fifth metatarsal head with adjace nt dressing further complicating visualization of the true extent of the ulcer. There appears to be a preserved soft tissue plane overlying the metatarsal head and abductor digitally minimi tendon at th is level, though there is increased signal in the abductor digiti minimi tendon. Intermediate T1 and mildly increased T2 signal along the plantar aspect of the fifth metatarsal head and surrounding the fourth metatarsal head may represent phlegmonous change. Questionable irregular thin curvilinear rim- enhancing collection(s) partially visualized in the proximal forefoot only on axial images. This coul d represent an abscess or abscesses. There is otherwise no evidence of an organized fluid collection. Diffuse skin thickening and subcutaneous soft tissue edema and enhancement predominantly along the d orsal and lateral aspects of the forefoot. Multiple small locules of soft tissue emphysema suspected in the forefoot, greatest dorsally. Osteomyelitis and erosive changes in the fourth metatarsal head. Marked increased T2 signal with mild intermediate T1 signal and contrast enhancement in the fifth metatarsal head and fifth proximal phal angeal base, nonspecific and may represent reactive edema versus early osteomyelitis. Mild increased T2 signal without T1 signal abnormality in the remainder of the fifth proximal phalanx, middle phalan x, and distal phalanx, compatible with reactive edema. No suspicious marrow signal abnormality in the remainder of the visualized foot. No evidence of acute fracture. Diffuse edema and enhancement in the intrinsic foot musculature, nonspecific and may be related to re active changes versus chronic diabetic myopathy. Flexor and extensor tendons otherwise unremarkable. 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 Ill-defined ulcer suggested along the lateral/plantar fifth metatarsal head with reactive changes tae candice early osteomyelitis in the fifth metatarsal head and fifth proximal phalangeal base. Additional r eactive edema in the remainder of the fifth phalanges. Probable phlegmonous change in the lateral forefoot and changes compatible with cellulitis and possib le partially visualized abscess/abscesses in the foot as described. Electronically signed by: Francisco J Dawkins DO (10/23/2020 4:11 PM) [id number]
== END | disposition home or self-care (01) ==
LOC: MRI 12:57
PROVIDERS: ATTEND Nurse Practitioner Family
DX: S91.302A Unspecified open wound, left foot, initial encounter (principal); T81.89XA Other complications of procedures, not elsewhere classified, initial encounter; M86.8X7 Other osteomyelitis, ankle and foot; I25.10 Atherosclerotic heart disease of native coronary artery without angina pectoris; I10 Essential (primary) hypertension; E11.42 Type 2 diabetes mellitus with diabetic polyneuropathy; M19.90 Unspecified osteoarthritis, unspecified site; F32.9 Major depressive disorder, single episode, unspecified; F17.210 Nicotine dependence, cigarettes, uncomplicated; Z90.710 Acquired absence of both cervix and uterus; Z98.890 Other specified postprocedural states; Z79.84 Long term (current) use of oral hypoglycemic drugs; Z79.899 Other long term (current) drug therapy; Z82.49 Family history of ischemic heart disease and other diseases of the circulatory system; X58.XXXA Exposure to other specified factors, initial encounter; Y93.89 Activity, other specified; Y92.89 Other specified places as the place of occurrence of the external cause; Y99.8 Other external cause status
CPT/HCPCS: 11042; 73720; A9575

== ENCOUNTER → 2021-11-01 | Outpatient (CLI) | payer MEDICARE, OTHER ==
[2021-10-24 11:00] VITALS: BP 152/66
[~2021-11-01] MED LIST changes: +BISA10SU4 PR; +Diclofenac Sodium TP; -GADOTERATE 5 MMOL/10ML VIAL. IVP ONE; +HYDR-2145 PO; +MAGN400O7 PO; +OXYC1TAB15 PO; +PIOG15TA42 PO; +SENN-209 PO
--- NOTE | 2021-11-01 11:17 | RAD ---
EXAMINATION: MRI LEFT LOWER EXTREMITY JOINT WITHOUT INDICATIONS: Left medial knee pain, instability. TECHNIQUE: Multiplanar multisequence MRI of the left knee was obtained without contrast. COMPARISON: Left knee radiograph 11/01/2021 FINDINGS: Axial T2 fat sat sequences limited due to extensive motion artifact. MENISCI: Mild blunting and increased signal in the posterior horn lateral meniscus extending into th e body and surfacing superiorly is consistent with a degenerative horizontal tear. Mild extrusion of the medial meniscus body. There is free edge fraying of the body lateral meniscus. Mild increased sig nal at the posterior root of the medial and lateral menisci could reflect fraying. LIGAMENTS: The anterior and posterior cruciate ligaments are intact. The medial collateral ligament and lateral collateral ligament complex are intact. EXTENSOR MECHANISM: The quadriceps and patellar tendons are intact. Fat pads are normal. Retinacula are intact. BONES AND CARTILAGE: There is a small subchondral insufficiency fracture of the central weightbearin g lateral femoral condyle with slight depression of the subchondral bone plate and extensive surround ing marrow edema. There is full-thickness cartilage loss along the patella. Superficial and deep partial-thickness cart ilage loss along the trochlea. There are small subchondral cysts in the patella. There is a 1.5 cm full-thickness cartilage defect at the posterior medial femoral condyle and profess ional and deep partial-thickness cartilage loss elsewhere in the medial compartment. There is degener ative irregularity of the medial femoral condyle articular surface. Lateral compartment cartilage is predominantly intact. There are tricompartmental osteophytes. There are small interosseous ganglion cysts in the tibia near the anterior and posterior roots of the media l meniscus. OTHER: Small joint effusion. No Choi's cyst. There is mild diffuse muscular atrophy. Reactive soft tissue edema along the lateral femoral condyle. IMPRESSION: 1. Subchondral insufficiency fracture of the lateral femoral condyle with mild depression of the subc hondral bone plate. 2. Degenerative horizontal tear of the posterior horn and body medial meniscus. Free edge fraying of the lateral meniscus. 3. Tricompartmental degenerative joint disease, greatest in the patellofemoral compartment where ther e is widespread full-thickness cartilage loss. Electronically signed by: Naomi Winkler MD (11/01/2021 11:14 AM) [id number]
== END ==
LOC: MRI 12:49
PROVIDERS: ATTEND Family Medicine
DX: Z47.89 Encounter for other orthopedic aftercare (principal); S83.242A Other tear of medial meniscus, current injury, left knee, initial encounter; M17.12 Unilateral primary osteoarthritis, left knee; M25.762 Osteophyte, left knee; M67.462 Ganglion, left knee; M25.462 Effusion, left knee; M62.50 Muscle wasting and atrophy, not elsewhere classified, unspecified site; E11.22 Type 2 diabetes mellitus with diabetic chronic kidney disease; E11.40 Type 2 diabetes mellitus with diabetic neuropathy, unspecified; I73.9 Peripheral vascular disease, unspecified; F41.9 Anxiety disorder, unspecified; F32.9 Major depressive disorder, single episode, unspecified; F17.200 Nicotine dependence, unspecified, uncomplicated; E78.5 Hyperlipidemia, unspecified; Z74.1 Need for assistance with personal care; R26.89 Other abnormalities of gait and mobility; R26.81 Unsteadiness on feet; M62.81 Muscle weakness (generalized); M79.89 Other specified soft tissue disorders; M84.452A Pathological fracture, left femur, initial encounter for fracture; X58.XXXA Exposure to other specified factors, initial encounter; Y93.89 Activity, other specified; Y92.89 Other specified places as the place of occurrence of the external cause; Y99.8 Other external cause status
CPT/HCPCS: 73721